=== PATIENT | male | born 1960 | race Caucasian/White ===

== ENCOUNTER 2016-10-20 03:50 | Inpatient (IN) | payer SELFPAY ==
[~2016-10-20] VITALS: Ht 175.3 cm; Wt 72.1 kg
[2016-10-20] MEDS ORDERED: dexameTHASONE 20 MG/5 ML VIAL (J1100) As Ordered ONE (04:13)
[2016-10-20 04:24] LABS: ABG BASE EXCESS -0.6 (-2.0-2.0); ABG DEVICE NASAL CANN; ABG HCO3 29.8 MEQ/L (22.0-26.0); ABG STANDARD HCO3 24.1 MEQ/L (22.0-26.0); ABG TOTAL CO2 32.1 MEQ/L (22.0-29.0)
[2016-10-20 04:26] LABS: ABG pH (ARTERIAL) 7.205 UNITS (7.350-7.450)
[2016-10-20 04:28] LABS: ABG PARTIAL PRESSURE O2 405.9 mmHg (75.0-100.0)
[2016-10-20 04:29] LABS: BASO % 0.1 % (0.0-1.0); EOS % 0.3 % (0.0-3.0); LARGE UNSTAINED CELL # 0.3 K/mm3 (0.0-0.4); LARGE UNSTAINED CELL % 1.4 % (0.0-4.0); LYMPH # 1.7 K/mm3 (1.5-4.5); LYMPH % 8.7 % (24.0-44.0); MEAN CORPUSCULAR HEMOGLOBIN 30.3 pg (27.0-33.0); MEAN CORPUSCULAR HGB CONC 33.9 g/dl (32.0-36.5); MEAN CORPUSCULAR VOLUME 89.5 fl (80.0-96.0); MONO # 1.4 K/mm3 (0.0-0.8); MONO % 7.1 % (0.0-5.0); NEUTROPHILS # 15.7 K/mm3 (1.8-7.7); NEUTROPHILS % 82.4 % (36.0-66.0); PLATELET COUNT, AUTOMATED 424 k/mm3 (150-450); WHITE BLOOD COUNT 19.1 K/mm3 (4.0-10.0)
[2016-10-20] MEDS ORDERED: IPRATROPIUM 0.5MG/ALBUTEROL 2.5MG INH SOL UD 3ML (DUONEB)(J7620) As Ordered ONE (04:33)
[2016-10-20] MEDS ORDERED: ASPI81TA7 PO (04:46)
[2016-10-20 05:26] LABS: ABG BASE EXCESS 0.9 (-2.0-2.0); ABG DEVICE NASAL CANN; ABG HCO3 28.3 MEQ/L (22.0-26.0); ABG PARTIAL PRESSURE CO2 56.4 mmHg (35.0-45.0); ABG PARTIAL PRESSURE O2 124.5 mmHg (75.0-100.0); ABG STANDARD HCO3 25.3 MEQ/L (22.0-26.0); ABG pH (ARTERIAL) 7.318 UNITS (7.350-7.450)
[2016-10-20] MEDS ORDERED: ASPIRIN 81 MG CHEW TABLET As Ordered ONE (05:27)
[2016-10-20 06:35] LABS: ABG BASE EXCESS 1.5 (-2.0-2.0); ABG HCO3 28.4 MEQ/L (22.0-26.0); ABG PARTIAL PRESSURE CO2 53.9 mmHg (35.0-45.0); ABG PARTIAL PRESSURE O2 113.2 mmHg (75.0-100.0); ABG STANDARD HCO3 25.8 MEQ/L (22.0-26.0); ABG pH (ARTERIAL) 7.339 UNITS (7.350-7.450)
--- NOTE | 2016-10-20 06:50 | HPEPDOC ---
General Date of Admission Oct 20, 2016 at 06:15 Chief Complaint The patient is a 56-year-old male admitted with a reason for visit of Copd Exacerbation. History of Present Illness 56 year old male with no PMH but chronic smoking is here with SOB for 1 day duration and productive cough with yellow sputum. Patient denies any chest pain, palpitations. never been admitted for COPD exacerbation. Patient is chronic smoker about 1-2 pack a day for many years. Hasn't had any medications, no nebulizer or inhaler. does not see any doctor outside. He does get SOB and dyspnea on exertion for past few months but since today is has been getting worse and it's been occurring at rest with wheezing. No sick contact, fever or chills. No history of pneumonia. No weight loss. Home Medications Scheduled Aspirin (Aspirin) 81 Mg Tab 81 MG PO DAILY (Reported) Allergies Coded Allergies: No Known Allergies (Unverified , 10/20/16) Past Medical History Medical History none Surgical History none Family History Significant Family History: No pertinent family hx Social History * Smoker: non-smoker, current smoker Alcohol: denies Recent Travel/Sick Contacts: Denies: Recent sick contacts, Recent travel Psychosocial History: No pertinent psych hx Review of Symptoms Constitutional: Denies: Chills, Fatigue, Fever, Lethargy, Malaise, Night Sweats , Other, Weakness, Weight Loss Eyes: Denies: Conjunctivae inflammation, Eyelid inflammation, Other, Pain, Redness, Vision change ENT: Denies: Dysphagia, Ear Pain, Epistaxis, Head Aches, Other Symptoms, Post Nasal Drip, Sinus Congestion, Sore Throat Skin: Denies: Breakdown, Bruising, Dry, Itching, Jaundice, Lesions, Nail Changes, Other, Rash Pulmonary: Reports: Cough, Dyspnea Cardiovascular: Denies: Chest Pain, Edema, Lt Headedness, Orthopnea, Other Symptoms, Palpitations, Paroxysmal Noc. Dyspnea Gastrointestinal: Denies: Abdominal Pain, Constipation, Diarrhea, Hematochezia , Melena, Nausea, Other Symptoms, Vomiting Endocrine: Denies: Cold Intolerance, Heat Intolerance, Other Endocrine Sx, Polydipsia, Polyphagia, Polyuria Musculoskeletal: Denies: Arm Pain, Back Pain, Foot Pain, Hand Pain, Joint Pain , Leg Pain, Muscle Pain, Neck Pain, Other Symptoms, Shoulder Pain, Spasms Physical Examination Eye Exam: Negative: Conjunctiva & lids normal, EOMI, Other Eye Symptoms, PERRLA , Ptosis, Sclera icteric ENT Exam: Negative: Atraumatic, Ext Auditory Canal Nml, Mucous membr. moist/ pink, Nares Patent, Other ENT, Pharyngeal Edema, Pharynx Normal, Pinna Normal, Tongue Midline, Tympanic Membranes Normal Neck Exam: Negative: +2 carotid pulse wo bruit, JVD, Lymphadenopathy, Other, Supple, thyromegaly Chest Exam: Positive: Diminished, Wheezing Heart Exam: Negative: Bradycardic, Gallops, Irregular Rhythm, Murmurs, Normal S1, Normal S2, Other, Rate Normal, Regular Rhythm, Rubs, Tachycardic Telemetry: Negative: AV Block, Asystole, Atrial fibrillation, Bradycardia, No significant arrhythmia, Other Telemetry:, PACs, PVCs, Pause, SV Tach, Sinus, Tachycardia Abdomen Exam: Negative: BS Hyperactive, BS Hypoactive, Hepatospenomegaly, Hernia, Mass, Normal bowel sounds, Other, Soft, Tenderness Extremity Exam: Positive: Edema, Swelling Vital Signs BP 112/73 P 91 T: 99.6 Laboratory Data Labs 24H Laboratory Tests 2 10/20/16 03:59: B-Type Natriuretic Peptide 772H, White Blood Count 19.1H, Red Blood Count 4.74, Hemoglobin 14.4, Hematocrit 42.5, Mean Corpuscular Volume 89.5, Mean Corpuscular Hemoglobin 30.3, Mean Corpuscular Hemoglobin Concent 33.9, Red Cell Distribution Width 12.0, Platelet Count 424, Neutrophils (%) (Auto) 82.4H, Lymphocytes (%) (Auto) 8.7L, Monocytes (%) (Auto) 7.1H, Eosinophils (%) (Auto) 0.3, Basophils (%) (Auto) 0.1, Neutrophils # (Auto) 15.7H, Lymphocytes # (Auto) 1.7, Monocytes # (Auto) 1.4H, Eosinophils # (Auto) 0.0, Basophils # (Auto) 0.0, Creatine Kinase MB 36.3H, Creatine Kinase MB Relative Index 4.64H, Lactic Acid Level 3.6*H, Large Unclassified Cells # 0.3, Large Unclassified Cells % 1.4, Total Creatine Kinase 781H, Troponin I 0.13H 10/20/16 04:10: Arterial Blood pH 7.205*L, Arterial Blood Partial Pressure CO2 77.0*H, Arterial Blood Partial Pressure O2 405.9H, Arterial Blood Total CO2 32.1H, Arterial Blood HCO3 29.8H, Arterial Blood Base Excess -0.6, Arterial Blood Oxygen Saturation 99.8H, Blood Gas Bicarbonate Standard 24.1, Oxygen Delivery Device NASAL HEMALATHA 10/20/16 05:02: Arterial Blood pH 7.318L, Arterial Blood Partial Pressure CO2 56.4H, Arterial Blood Partial Pressure O2 124.5H, Arterial Blood Total CO2 30.0H, Arterial Blood HCO3 28.3H, Arterial Blood Base Excess 0.9, Arterial Blood Oxygen Saturation 98.5, Blood Gas Bicarbonate Standard 25.3, Oxygen Delivery Device NASAL HEMALATHA 10/20/16 06:30: Arterial Blood pH 7.339L, Arterial Blood Partial Pressure CO2 53.9H, Arterial Blood Partial Pressure O2 113.2H, Arterial Blood Total CO2 30.0H, Arterial Blood HCO3 28.4H, Arterial Blood Base Excess 1.5, Arterial Blood Oxygen Saturation 98.4, Blood Gas Bicarbonate Standard 25.8 10/20/16 06:31: CBC/BMP Laboratory Tests 10/20/16 03:59 Red Blood Count 4.74, Mean Corpuscular Volume 89.5, Mean Corpuscular Hemoglobin 30.3, Mean Corpuscular Hemoglobin Concent 33.9, Red Cell Distribution Width 12.0 , Neutrophils (%) (Auto) 82.4 H, Lymphocytes (%) (Auto) 8.7 L, Monocytes (%) ( Auto) 7.1 H, Eosinophils (%) (Auto) 0.3, Basophils (%) (Auto) 0.1, Neutrophils # (Auto) 15.7 H, Lymphocytes # (Auto) 1.7, Monocytes # (Auto) 1.4 H, Eosinophils # (Auto) 0.0, Basophils # (Auto) 0.0 Microbiology Microbiology 10/20/16 Blood Culture, Received Pending Plan / VTE VTE Prophylaxis Ordered?: Yes Plan Plan 56 year old male with no PMH but chronic smoking is here with SOB for 1 day duration and productive cough with yellow sputum. COPD exacerbation: - on BIPAP at this time, will start him duoneb, spiriva, IV steroids and inhaled steroids. - obtain ABG in few hours. - also given elevated WBC will start him on azithromycin, so signs of PNA on CXR will obtain 2 view just to confirm. - also will check D-Dimer, there is low suspicion for PE but given acute setting of dyspnea just ruling out PE. - currently on BIPAP so NPO. elevated troponins: - has trace pitting edema and not in acute heart failure given no rales and PVC on CXR or JVD. - will trend CE and ECG and obtain ECHO as well. - also ruling out PE by d-dimer. echo will also check for RV strain. DVT: lovenox for ppx. HARSHA CADE MD Oct 20, 2016 06:50
[2016-10-20 07:10] LABS: ALBUMIN 2.9 GM/DL (3.2-5.2); ALBUMIN/GLOBULIN RATIO 0.69 (1.00-1.93); ALKALINE PHOSPHATASE 79 U/L (45-117); ALT/SGPT 22 U/L (12-78); AST/SGOT 43 U/L (15-37); BILIRUBIN,TOTAL 0.5 MG/DL (0.2-1.0); BLOOD UREA NITROGEN 7 MG/DL (7-18); CALCIUM LEVEL 8.4 MG/DL (8.5-10.1); CARBON DIOXIDE LEVEL 31 MEQ/L (21-32); CHLORIDE LEVEL 72 MEQ/L (98-107); CREATININE FOR GFR 0.56 MG/DL (0.70-1.30); GLOMERULAR FILTRATION RATE > 60.0 (>56); GLUCOSE, FASTING 124 MG/DL (70-105); POTASSIUM SERUM 5.1 MEQ/L (3.5-5.1); TOTAL PROTEIN 7.1 GM/DL (6.4-8.2)
[2016-10-20] MEDS ORDERED: IPRATROPIUM 0.5MG/ALBUTEROL 2.5MG INH SOL UD 3ML (DUONEB)(J7620) NEB PRN (07:15)
[2016-10-20 07:30] LABS: ANION GAP 8 MEQ/L (8-16)
[2016-10-20 07:31] LABS: SODIUM LEVEL 111 MEQ/L (136-145)
--- NOTE | 2016-10-20 07:45 | EDDOCDS ---
Physician Documentation [facility] Name: Norberto Perdomo Age: 56 yrs Sex: Male : 1960 Arrival Date: 10/20/2016 Time: 03:50 Bed 2 Private MD: Disposition: 10/20 05:36 Critical Care:. cs11 Disposition: 10/20/16 05:07 Hospitalization ordered by Danie Dumas for Inpatient Admission. Preliminary diagnosis is Respiratory failure, unspecified with hypercapnia. - Bed requested for M ICU. - Status is Inpatient Admission. dy - Condition is Stable. - Problem is new. - Symptoms have improved. Historical: - Allergies: No known drug Allergies; - Home Meds: 1. none - PMHx: none; - PSHx: none; - Social history: Smoking status: Patient uses tobacco products, heavy tobacco smoker. No barriers to communication noted, The patient speaks fluent Slovenian, Speaks appropriately for age. - Family history: Not pertinent. - : The pt / caregiver states he / she is not on anticoagulants. Home medication list is obtained from the patient. - Exposure Risk Screening:: None identified. Vital Signs: 03:55 BP 112 / 73 (auto/); kas2 03:56 Pulse 91 MON; Pulse Ox 97% ; kas2 03:57 BP 112 / 73; Pulse 89; Resp 36; Pulse Ox 74% on R/A; Pain 0/10; nn1 04:00 Pulse Ox 99% on 15% Non-rebreather mask; nn1 04:00 BP 117 / 90 (auto/); kas2 04:00 Pulse 90 MON; Pulse Ox 98% ; kas2 04:30 BP 166 / 98 (auto/); kas2 04:30 Pulse 82 MON; Pulse Ox 100% ; kas2 04:45 BP 149 / 81 (auto/); kas2 04:45 Pulse 82 MON; Pulse Ox 99% ; kas2 05:00 BP 133 / 78 (auto/); kas2 05:00 Pulse 81 MON; Pulse Ox 98% ; kas2 05:15 BP 124 / 70 (auto/); kas2 05:15 Pulse 77 MON; Pulse Ox 97% ; kas2 05:30 BP 124 / 75 (auto/); kas2 05:30 Pulse 76 MON; Pulse Ox 95% ; kas2 05:45 BP 130 / 76 (auto/); kas2 05:45 Pulse 77 MON; Pulse Ox 97% ; kas2 06:00 BP 126 / 72 (auto/); kas2 06:00 Pulse 77 MON; Pulse Ox 96% ; kas2 06:15 BP 133 / 86 (auto/); kas2 06:15 Pulse 78 MON; Pulse Ox 98% ; kas2 06:30 BP 138 / 69 (auto/); kas2 06:30 Pulse 76 MON; Pulse Ox 98% ; kas2 06:33 Resp 20; Temp 98.0(O); Pain 0/10; kas2 07:35 BP 127 / 86; Pulse 76; Resp 20; Temp 97.6; Pulse Ox 96% on 40% BiPAP; Pain 0/10; bcj MDM: 04:07 Call Respiratory ordered. cs11 04:08 BIPAP INPATIENT+RESP-VENT ordered. EDMS 04:09 Call Respiratory complete. kas2 04:10 -Blood Culture (Adults Only), peripheral from different site, or from device/port/PICC cs11 etc. if present ordered. 04:10 Call Respiratory ordered. cs11 04:10 Albuterol-Ipratropium 3 ml Inhalation once ordered. cs11 04:10 Dexamethasone 10 mg IV at bolus once ordered. cs11 04:10 Chest, 1 View Ordered. EDMS 04:10 BED REQUEST+ADM ordered. EDMS 04:11 Call Respiratory complete. kas2 04:11 -Blood Culture (Adults Only), peripheral from different site, or from device/port/PICC kas2 etc. if present complete. 04:11 ECG WITH READING ER PHYS+CARDIAG ordered. EDMS 04:11 CBC with Diff Ordered. EDMS 04:11 Lactic Acid (Sandra tube on ice) Ordered. EDMS 04:11 Cardiac Marker Panel Ordered. EDMS 04:11 BNP Ordered. EDMS 04:11 -Arterial Blood Gas Ordered. EDMS 04:11 -Blood Culture Ordered. EDMS 04:31 CBC with Diff Reviewed. cs11 04:31 -Arterial Blood Gas Reviewed. cs11 04:53 Lactic Acid (Sandra tube on ice) Reviewed. cs11 04:53 Cardiac Marker Panel Reviewed. cs11 05:01 Financial registration complete. hs2 05:01 [facility] Payment Agreement was scanned into [employer] and attached to record. hs2 05:21 BNP Reviewed. cs11 05:24 Aspirin 324 mg PO once ordered. cs11 05:25 -Arterial Blood Gas Ordered. EDMS 06:15 COMPLETE COMPHRENSIVE METABOLI Ordered. EDMS 06:15 D-DIMER QUANT Ordered. EDMS 06:16 Chest, 2 view PA, Lat Ordered. EDMS 06:18 ARTERIAL BLOOD GAS Ordered. EDMS 06:18 SPUTUM CULTURE AND GRAM STAIN Ordered. EDMS 06:19 Admission / Observation Status ordered. EDMS 06:19 NPO DIET ordered. EDMS 06:52 ECHOCARD,DOPPLER/COLOR FLOW ordered. EDMS 06:58 URINALYSIS Ordered. EDMS 07:05 CARDIAC MARKER PANEL Ordered. EDMS 07:05 CARDIAC MARKER PANEL Ordered. EDMS 07:05 LACTIC ACID LEVEL, LACTATE Ordered. EDMS 07:08 RESPIRATORY PANEL Ordered. EDMS Administered Medications: 04:20 Drug: Albuterol-Ipratropium 3 ml [ipratropium-albuterol 0.5 mg-3 mg(2.5 mg base)/3 mL jc3 nebulization soln (3 mL)] Route: Inhalation; 04:25 Drug: Dexamethasone 10 mg [dexamethasone 4 mg/mL injection solution] Route: IV; Rate: kas2 bolus; Site: right hand; 05:32 Drug: Aspirin 324 mg [aspirin 81 mg chewable tablet (4 tabs)] Route: PO; kas2 Critical Care Time: 05:36 Critical care time: Bedside Care: 120 minutes. Total time: 120 minutes cs11 Signatures: Dispatcher [employer] EDMS Mary Fitzpatrick RN RN daq Youngs, David RN Ag Huang DO DO cs11 Navid Barker RN RN nn1 Eneida Thomas, Chance Reg hs2 Jessica Jones RN RN kas2 Cj Garcia jc3 The chart was reviewed and I authenticate all verbal orders and agree with the evaluation and treatment provided.Corrections: (The following items were deleted from the chart) 06:37 05:23 BASIC METABOLIC PROFILE+LAB ordered. EDMS EDMS 07:03 06:52 CARDIAC MARKER PANEL ordered. EDMS EDMS 07:03 06:52 CARDIAC MARKER PANEL ordered. EDMS EDMS 07:03 06:52 CARDIAC MARKER PANEL ordered. EDMS EDMS 07:18 07:05 C REACTIVE PROTEIN QUANTITATIV ordered. EDMS EDMS 07:18 07:08 THYROID PROFILE ordered. EDMS EDMS Attachments: 05:01 [facility] Payment Agreement hs2 MTDD
--- NOTE | 2016-10-20 07:45 | EDDOCDS ---
Nurse's Notes [facility] Name: Norberto Perdomo Age: 56 yrs Sex: Male : 1960 Arrival Date: 10/20/2016 Time: 03:50 Bed 2 Private MD: Diagnosis: Respiratory failure, unspecified with hypercapnia Presentation: 10/20 03:56 Presenting complaint: Patient states: SOB x 3 hours. Suicide/Homicide risk assessment- nn1 the patient denies having any suicidal and/or homicidal ideations and does not present with any other emotional, behavioral or mental health complaints. Status: Patient is not a track service worker or dependent. Transition of care: patient was not received from another setting of care. 03:56 Acuity: OPAL Level 3 nn1 03:56 Method Of Arrival: Walkin/Carried/Asstd nn1 05:11 Adult Sepsis Screening: The patient does not have new or worsening altered mentation. kas2 Patient's respiratory rate is less than 22. Systolic blood pressure is greater than 100. Patient has a qSOFA score of 0- Negative Sepsis Screen. Triage Assessment: 03:59 General: Appears distressed, Behavior is cooperative. Pain: Denies pain. The patient is nn1 triaged at the bedside. See Assessment in Nurses Notes section of ED record. Neurological: Level of Consciousness is awake, alert. Cardiovascular: Capillary refill < 3 seconds. Respiratory: Onset: The symptoms/episode began/occurred 2 HOURS AGO, Airway is patent Respiratory effort is labored, gasping, with retractions. Derm: Skin is diaphoretic. 05:10 Pt Declines HIV testing. kas2 Historical: - Allergies: No known drug Allergies; - Home Meds: 1. none - PMHx: none; - PSHx: none; - Social history: Smoking status: Patient uses tobacco products, heavy tobacco smoker. No barriers to communication noted, The patient speaks fluent Burkinan, Speaks appropriately for age. - Family history: Not pertinent. - : The pt / caregiver states he / she is not on anticoagulants. Home medication list is obtained from the patient. - Exposure Risk Screening:: None identified. Screenin:10 Screening information is obtained from the patient. Fall risk: No risks identified. kas2 Assistance ADL's: requires no assistance with activities of daily living. Abuse/DV Screen: The patient / caregiver reports he/she is: not in a situation that causes fear, pain or injury. Nutritional screening: No deficits noted. Advance Directives: Currently, there is no health care proxy. There is no active DNR order. There is no living will. There is no Power of Adjunct Latin Professor. home support is adequate. Assessment: 03:50 General: RT in the room applying BIPAP to patient at this time.. kas2 04:06 General: Appears distressed, unkempt, Behavior is appropriate for age, cooperative. kas2 Pain: Denies pain. Neurological: Level of Consciousness is awake, alert, Oriented to person, place, time. Cardiovascular: Capillary refill < 3 seconds Heart tones present Rhythm is sinus tachycardia No ectopy. Respiratory: Airway is compromised Respiratory effort is labored, with nasal flaring, Respiratory pattern is tachypnea Breath sounds are diminished Breath sounds with wheezes inspiratory expiratory bilaterally. Derm: Skin is intact, Skin is diaphoretic, Skin is pale, Skin temperature is warm. 05:05 General: Patient sitting up in bed with BIPAP on. Patient is much more comfortable and kas2 SpO2 100%. No apparent distress noted. Appears comfortable. VSS. Call mtz within reach. Will continue to monitor.. 06:32 General: Appears in no apparent distress, comfortable, well nourished, well groomed, kas2 Behavior is appropriate for age, cooperative. Pain: Denies pain. Neurological: Level of Consciousness is awake, alert, Oriented to person, place, time. Cardiovascular: Capillary refill < 3 seconds Heart tones present Rhythm is sinus rhythm No ectopy. Respiratory: Airway is patent Respiratory effort is even, unlabored, Respiratory pattern is regular, symmetrical, Breath sounds are diminished bilaterally. Derm: Skin is intact, Skin is dry, Skin is pink, warm & dry. Skin temperature is warm. 07:35 General: Appears in no apparent distress, comfortable, Behavior is cooperative. Pain: bcj Denies pain. Neurological: Level of Consciousness is awake, alert, Oriented to person, place, time. Cardiovascular: Rhythm is sinus rhythm. Respiratory: Airway is patent Respiratory effort is even, unlabored, Respiratory pattern is regular, Breath sounds with rhonchi bilaterally. Breath sounds are diminished bilaterally. Derm: Skin is pink, warm & dry. Vital Signs: 03:55 BP 112 / 73 (auto/); kas2 03:56 Pulse 91 MON; Pulse Ox 97% ; kas2 03:57 BP 112 / 73; Pulse 89; Resp 36; Pulse Ox 74% on R/A; Pain 0/10; nn1 04:00 Pulse Ox 99% on 15% Non-rebreather mask; nn1 04:00 BP 117 / 90 (auto/); kas2 04:00 Pulse 90 MON; Pulse Ox 98% ; kas2 04:30 BP 166 / 98 (auto/); kas2 04:30 Pulse 82 MON; Pulse Ox 100% ; kas2 04:45 BP 149 / 81 (auto/); kas2 04:45 Pulse 82 MON; Pulse Ox 99% ; kas2 05:00 BP 133 / 78 (auto/); kas2 05:00 Pulse 81 MON; Pulse Ox 98% ; kas2 05:15 BP 124 / 70 (auto/); kas2 05:15 Pulse 77 MON; Pulse Ox 97% ; kas2 05:30 BP 124 / 75 (auto/); kas2 05:30 Pulse 76 MON; Pulse Ox 95% ; kas2 05:45 BP 130 / 76 (auto/); kas2 05:45 Pulse 77 MON; Pulse Ox 97% ; kas2 06:00 BP 126 / 72 (auto/); kas2 06:00 Pulse 77 MON; Pulse Ox 96% ; kas2 06:15 BP 133 / 86 (auto/); kas2 06:15 Pulse 78 MON; Pulse Ox 98% ; kas2 06:30 BP 138 / 69 (auto/); kas2 06:30 Pulse 76 MON; Pulse Ox 98% ; kas2 06:33 Resp 20; Temp 98.0(O); Pain 0/10; kas2 07:35 BP 127 / 86; Pulse 76; Resp 20; Temp 97.6; Pulse Ox 96% on 40% BiPAP; Pain 0/10; [facility] Vitals: 07:38 Log In Time N/A - ambulance arrival. [facility] ED Course: 03:55 Patient visited by Niharika Merritt. gjb 03:55 Jessica Jones,RN is Primary Nurse. nn1 03:55 Patient moved to Waiting gjb 03:55 Patient moved to 2 nn1 03:56 Ag Godinez DO is Attending Physician. cs11 03:56 Patient visited by Ag Godinez DO. cs11 03:57 Triage Initiated nn1 04:05 Inserted saline lock: 18 gauge in right antecubital area and blood collected. The kas2 patient tolerated the procedure well. 04:06 Inserted saline lock: 20 gauge in right forearm The patient tolerated the procedure kas2 well. 04:09 Patient visited by Jessica Jones RN. kas2 04:12 CBC with Diff Sent. kas2 04:12 Cardiac Marker Panel Sent. kas2 04:12 Lactic Acid (Sandra tube on ice) Sent. kas2 04:12 BNP Sent. kas2 04:18 Patient visited by Rose Field Unit Clerk. jlm 04:18 EKG done. (by ED staff). Reviewed by Ag Godinez DO. jlm 04:19 -Arterial Blood Gas Sent. jc3 04:26 Patient visited by Jessica Jones RN. kas2 04:30 Notified attending ED physician of Critical lab value. sls1 05:01 [facility] Payment Agreement was scanned into [employer] and attached to record. hs2 05:06 Danie Dumas MD is Hospitalizing Provider. cs11 05:10 No procedures done that require assistance. kas2 05:11 Patient visited by Jessica Jones RN. kas2 06:31 ARTERIAL BLOOD GAS Sent. jc3 06:33 Patient visited by Jessica Jones RN. kas2 07:29 Patient visited by Kolby Desouza RN. bcj 07:35 Primary Nurse role handed off by Jessica Jones RN deg 07:35 No apparent distress. Resting quietly. Awaiting bed assignment. bcj 07:35 The patient / caregiver is instructed regarding the plan of care and ED course. Cardiac bcj monitor on. Pulse ox on. NIBP on. 07:35 IV is intact. bcj Administered Medications: 04:20 Drug: Albuterol-Ipratropium 3 ml [ipratropium-albuterol 0.5 mg-3 mg(2.5 mg base)/3 mL jc3 nebulization soln (3 mL)] Route: Inhalation; 04:25 Drug: Dexamethasone 10 mg [dexamethasone 4 mg/mL injection solution] Route: IV; Rate: kas2 bolus; Site: right hand; 05:32 Drug: Aspirin 324 mg [aspirin 81 mg chewable tablet (4 tabs)] Route: PO; kas2 RT: 04:19 ABG's drawn from right brachial artery pressure held for 5 minutes no bleeding noted jc3 pressure bandage applied specimen sent pt. tolerated well. 04:19 BIPAP: Inspiratory Pressure: 14, Expiratory Pressure: 6, Backup Rate: 8, FiO2: 50%, jc3 Full face fask. Initial Med Neb Given as ordered. Respiratory: Breath sounds are diminished bilaterally. 04:36 BIPAP: FiO2: 40%. jc3 05:05 ABG's drawn from right radial artery pressure held for 5 minutes no bleeding noted jc3 pressure bandage applied specimen sent pt. tolerated well. 05:15 Respiratory: Airway is patent Respiratory effort is labored, Use of accessory muscles jc3 noted. Respiratory pattern is Breath sounds are diminished bilaterally. 06:31 ABG's drawn from right brachial artery pressure held for 5 minutes no bleeding noted jc3 pressure bandage applied specimen sent pt. tolerated well. Order Results: Lab Order: CBC with Diff; SPEC'M 10/20/16 03:59 Test: WHITE BLOOD COUNT; Value: 19.1; Range: 4.0-10.0; Abnormal: Above high normal; Units: K/mm3; Status: F Test: RED BLOOD COUNT; Value: 4.74; Range: 4.30-6.10; Units: M/mm3; Status: F Test: HEMOGLOBIN; Value: 14.4; Range: 14.0-18.0; Units: g/dl; Status: F Test: HEMATOCRIT; Value: 42.5; Range: 42.0-52.0; Units: %; Status: F Test: MEAN CORPUSCULAR VOLUME; Value: 89.5; Range: 80.0-96.0; Units: fl; Status: F Test: MEAN CORPUSCULAR HEMOGLOBIN; Value: 30.3; Range: 27.0-33.0; Units: pg; Status: F Test: MEAN CORPUSCULAR HGB CONC; Value: 33.9; Range: 32.0-36.5; Units: g/dl; Status: F Test: RED CELL DISTRIBUTION WIDTH; Value: 12.0; Range: 11.5-14.5; Units: %; Status: F Test: PLATELET COUNT, AUTOMATED; Value: 424; Range: 150-450; Units: k/mm3; Status: F Test: NEUTROPHILS %; Value: 82.4; Range: 36.0-66.0; Abnormal: Above high normal; Units: %; Status: F Test: LYMPH %; Value: 8.7; Range: 24.0-44.0; Abnormal: Below low normal; Units: %; Status: F Test: MONO %; Value: 7.1; Range: 0.0-5.0; Abnormal: Above high normal; Units: %; Status: F Test: EOS %; Value: 0.3; Range: 0.0-3.0; Units: %; Status: F Test: BASO %; Value: 0.1; Range: 0.0-1.0; Units: %; Status: F Test: LARGE UNSTAINED CELL %; Value: 1.4; Range: 0.0-4.0; Units: %; Status: F Test: NEUTROPHILS #; Value: 15.7; Range: 1.8-7.7; Abnormal: Above high normal; Units: K/mm3; Status: F Test: LYMPH #; Value: 1.7; Range: 1.5-4.5; Units: K/mm3; Status: F Test: MONO #; Value: 1.4; Range: 0.0-0.8; Abnormal: Above high normal; Units: K/mm3; Status: F Test: EOS #; Value: 0.0; Range: 0.0-0.50; Units: K/mm3; Status: F Test: BASO #; Value: 0.0; Range: 0.0-0.2; Units: K/mm3; Status: F Test: LARGE UNSTAINED CELL #; Value: 0.3; Range: 0.0-0.4; Units: K/mm3; Status: F Lab Order: Lactic Acid (Sandra tube on ice); SPEC'M 10/20/16 03:59 Test: LACTIC ACID LEVEL, LACTATE; Value: 3.6; Range: 0.4-2.0; Abnormal: Above upper panic limits; Units: MMOL/L; Status: F Lab Order: Cardiac Marker Panel; SPEC'M 10/20/16 03:59 Test: CPK CREATINE PHOSPHOKINASE; Value: 781; Range: 39-308; Abnormal: Above high normal; Units: U/L; Status: F Test: CK-MB VALUE MASS; Value: 36.3; Range: 0.0-3.6; Abnormal: Above high normal; Units: NG/ML; Status: F Test: MB/CK RELATIVE INDEX; Value: 4.64; Range: < OR =4; Abnormal: Above high normal; Status: F Test: TROPONIN I; Value: 0.13; Range: < 0.10; Abnormal: Above high normal; Units: NG/ML; Status: F Test Note: ; DIAGNOSIS CRITERIA MMB ng/ml Relative Index (RI) NON-AMI < or = 5 N/A SANDRA ZONE > 5 < or = 4 AMI > 5 > 4 Lab Order: BNP; [facility] 10/20/16 03:59 Test: BRAIN NATRIURETIC PEPTIDE; Value: 772; Range: <100; Abnormal: Above high normal; Units: PG/ML; Status: F Lab Order: -Arterial Blood Gas; [facility] 10/20/16 04:10 Test: ABG pH (ARTERIAL); Value: 7.205; Range: 7.350-7.450; Abnormal: Critical Low; Units: UNITS; Status: F Test: ABG PARTIAL PRESSURE CO2; Value: 77.0; Range: 35.0-45.0; Abnormal: Above upper panic limits; Units: mmHg; Status: F Test: ABG PARTIAL PRESSURE O2; Value: 405.9; Range: 75.0-100.0; Abnormal: Above high normal; Units: mmHg; Status: F Test: ABG TOTAL CO2; Value: 32.1; Range: 22.0-29.0; Abnormal: Above high normal; Units: MEQ/L; Status: F Test: ABG HCO3; Value: 29.8; Range: 22.0-26.0; Abnormal: Above high normal; Units: MEQ/L; Status: F Test: ABG BASE EXCESS; Value: -0.6; Range: -2.0-2.0; Status: F Test: ABG STANDARD HCO3; Value: 24.1; Range: 22.0-26.0; Units: MEQ/L; Status: F Test: ABG O2 SATURATION; Value: 99.8; Range: 95.0-99.0; Abnormal: Above high normal; Units: %; Status: F Test: ABG DEVICE; Value: NASAL HEMALATHA; Status: F Lab Order: -Arterial Blood Gas; [facility] 10/20/16 05:02 Test: ABG pH (ARTERIAL); Value: 7.318; Range: 7.350-7.450; Abnormal: Below low normal; Units: UNITS; Status: F Test: ABG PARTIAL PRESSURE CO2; Value: 56.4; Range: 35.0-45.0; Abnormal: Above high normal; Units: mmHg; Status: F Test: ABG PARTIAL PRESSURE O2; Value: 124.5; Range: 75.0-100.0; Abnormal: Above high normal; Units: mmHg; Status: F Test: ABG TOTAL CO2; Value: 30.0; Range: 22.0-29.0; Abnormal: Above high normal; Units: MEQ/L; Status: F Test: ABG HCO3; Value: 28.3; Range: 22.0-26.0; Abnormal: Above high normal; Units: MEQ/L; Status: F Test: ABG BASE EXCESS; Value: 0.9; Range: -2.0-2.0; Status: F Test: ABG STANDARD HCO3; Value: 25.3; Range: 22.0-26.0; Units: MEQ/L; Status: F Test: ABG O2 SATURATION; Value: 98.5; Range: 95.0-99.0; Units: %; Status: F Test: ABG DEVICE; Value: NASAL HEMALATHA; Status: F Lab Order: COMPLETE COMPHRENSIVE METABOLI; SPEC'M 10/20/16 06:31 Test: GLUCOSE, FASTING; Value: 124; Range: 70-105; Abnormal: Above high normal; Units: MG/DL; Status: F Test: BLOOD UREA NITROGEN; Value: 7; Range: 7-18; Units: MG/DL; Status: F Test: CREATININE FOR GFR; Value: 0.56; Range: 0.70-1.30; Abnormal: Below low normal; Units: MG/DL; Status: F Test: GLOMERULAR FILTRATION RATE; Value: > 60.0; Range: >56; Status: F Test: SODIUM LEVEL; Value: 111; Range: 136-145; Abnormal: Critical Low; Units: MEQ/L; Status: F Test: POTASSIUM SERUM; Value: 5.1; Range: 3.5-5.1; Units: MEQ/L; Status: F Test: CHLORIDE LEVEL; Value: 72; Range: 98-107; Abnormal: Below low normal; Units: MEQ/L; Status: F Test: CARBON DIOXIDE LEVEL; Value: 31; Range: 21-32; Units: MEQ/L; Status: F Test: ANION GAP; Value: 8; Range: 8-16; Units: MEQ/L; Status: F Test: CALCIUM LEVEL; Value: 8.4; Range: 8.5-10.1; Abnormal: Below low normal; Units: MG/DL; Status: F Test: AST/SGOT; Value: 43; Range: 15-37; Abnormal: Above high normal; Units: U/L; Status: F Test: ALT/SGPT; Value: 22; Range: 12-78; Units: U/L; Status: F Test: ALKALINE PHOSPHATASE; Value: 79; Range: 45-117; Units: U/L; Status: F Test: BILIRUBIN,TOTAL; Value: 0.5; Range: 0.2-1.0; Units: MG/DL; Status: F Test: TOTAL PROTEIN; Value: 7.1; Range: 6.4-8.2; Units: GM/DL; Status: F Test: ALBUMIN; Value: 2.9; Range: 3.2-5.2; Abnormal: Below low normal; Units: GM/DL; Status: F Test: ALBUMIN/GLOBULIN RATIO; Value: 0.69; Range: 1.00-1.93; Abnormal: Below low normal; Status: F Test Note: ; Units are mL/min/1.73 m2 Chronic Kidney Disease Staging per NKF: Stage I & II GFR >=60 Normal to Mildly Decreased Stage III GFR 30-59 Moderately Decreased Stage IV GFR 15-29 Severely Decreased Stage V GFR <15 Very Little GFR Left ESRD GFR <15 on GENERAL REPAIRER Lab Order: D-DIMER QUANT; SPEC'10/20/16 06:31 Test: D-DIMER QUANT; Value: < 270.0; Range: <500; Units: ng/ml; Status: F Lab Order: ARTERIAL BLOOD GAS; SPEC10/20/16 06:30 Test: ABG pH (ARTERIAL); Value: 7.339; Range: 7.350-7.450; Abnormal: Below low normal; Units: UNITS; Status: F Test: ABG PARTIAL PRESSURE CO2; Value: 53.9; Range: 35.0-45.0; Abnormal: Above high normal; Units: mmHg; Status: F Test: ABG PARTIAL PRESSURE O2; Value: 113.2; Range: 75.0-100.0; Abnormal: Above high normal; Units: mmHg; Status: F Test: ABG TOTAL CO2; Value: 30.0; Range: 22.0-29.0; Abnormal: Above high normal; Units: MEQ/L; Status: F Test: ABG HCO3; Value: 28.4; Range: 22.0-26.0; Abnormal: Above high normal; Units: MEQ/L; Status: F Test: ABG BASE EXCESS; Value: 1.5; Range: -2.0-2.0; Status: F Test: ABG STANDARD HCO3; Value: 25.8; Range: 22.0-26.0; Units: MEQ/L; Status: F Test: ABG O2 SATURATION; Value: 98.4; Range: 95.0-99.0; Units: %; Status: F Lab Order: THYROID PROFILE; SPEC'M 10/20/16 03:59 Test: T UPTAKE; Range: 33-40; Units: %; Status: I Test: THYROXINE (T4); Range: 4.5-12.0; Units: UG/DL; Status: I Test: FREE THYROXINE INDEX; Range: 1.4-3.8; Units: %; Status: I Test: THYROID STIMULATING HORMONE; Range: 0.358-3.740; Units: uIU/ML; Status: I Lab Order: C REACTIVE PROTEIN QUANTITATIV; SPEC'M 10/20/16 03:59 Test: C REACTIVE PROTEIN QUANTITATIV; Value: 4.04; Range: 0.00-0.30; Abnormal: Above high normal; Units: MG/DL; Status: F Outcome: 05:07 Decision to Hospitalize by Provider. [facility] 07:35 Discharge Assessment: patient administered narcotics - no. The following High Risk bcj Discharge criteria are identified: None. Admitted to ICU accompanied by nurse, accompanied by tech, via stretcher, with oxygen. Condition: stable. No special radiology studies were completed. Admission hand-off: Report called to Sharyn Crenshaw RN. Property :Personal belongings accompany Pt. 07:45 Patient left the ED. dy Signatures: Jane Harrell, In Room Dining Server Unit deg oKlby Desouza, RN RN bcj Rambo Lopez, RN RN dy Cj Garcia jc3 Neris Johns, RN RN sls1 Ag Godinez, DO PACK cs11 Rose Field, In Room Dining Server Unit jlm Navid Barker,RN RN nn1 Niharika Merritt Hillary, Reg Reg hs2 Jessica JonesRN RN kas2 MTDD
[2016-10-20 08:00] VITALS: BP 139/94
[2016-10-20] MEDS ORDERED: TIOTROPIUM INHALER/CAPSULE (SPIRIVA) INH SCH (08:00)
[2016-10-20] MEDS ORDERED: AZITHROMYCIN 500 MG, VIAL MATE ADAPTER 1 EACH in D5W 250 ML IV SCH (08:00)
[2016-10-20] MEDS ORDERED: IPRATROPIUM 0.5MG/ALBUTEROL 2.5MG INH SOL UD 3ML (DUONEB)(J7620) NEB SCH ×2 (08:00→12:00)
[2016-10-20] MEDS ORDERED: methylPREDNISolone INJ 40 MG/1 ML VIAL (J2920) IV SCH (08:00)
[2016-10-20] MEDS: HEPARIN SOD (PORCINE) 5000 UNITS/ML VIAL SQ SCH ×2 (08:20→14:08)
[2016-10-20 08:46] LABS: THYROXINE (T4) 10.3 UG/DL (4.5-12.0)
[2016-10-20] MEDS ORDERED: ENOXAPARIN 40 MG/0.4 ML SYRINGE (J1650) SC SCH (09:00)
[2016-10-20] MEDS ORDERED: NICOTINE 14 MG/24 HR TRANSDERMAL TD SCH (09:00)
[2016-10-20] MEDS ORDERED: ADVAIR DISKUS 500/50 INH PWD INH SCH (09:00)
--- NOTE | 2016-10-20 09:11 | REP ---
Clinical: Shortness of breath . Comparison: None . Findings: The mediastinum and cardiac silhouette are stable and within normal limits for portable technique. The lung greenwood are clear without acute consolidation, effusion, or pneumothorax. Skeletal structures are intact. Impression: Normal portable chest x-ray Signed by Herbie Lynch MD 10/20/2016 09:02 A
[2016-10-20 09:34] LABS: AMPHETAMINES URINE REFLEX NEGATIVE (NEGATIVE); BARBITURATES URINE REFLEX NEGATIVE (NEGATIVE); BENZODIAZEPINES URINE REFLEX NEGATIVE (NEGATIVE); COCAINE METABOLITE URINE REFLE NEGATIVE (NEGATIVE); CONTROL LINE INT CTR LINE PRESENT; METHADONE URINE REFLEX NEGATIVE (NEGATIVE); OPIATES URINE REFLEX NEGATIVE (NEGATIVE); TRICYCLIC ANTIDEPRESS UR REFL NEGATIVE (NEGATIVE)
[2016-10-20] MEDS ORDERED: GASTROGRAFIN SOLUTION 30ML (Q9963) PO ONE ×2 (10:00→10:30)
[2016-10-20] MEDS ORDERED: GASTROGRAFIN SOLUTION 30ML (Q9963) As Ordered ONE (10:03)
[2016-10-20 10:05] LABS: ANION GAP 10 MEQ/L (8-16); BLOOD UREA NITROGEN 8 MG/DL (7-18); CALCIUM LEVEL 8.4 MG/DL (8.5-10.1); CARBON DIOXIDE LEVEL 29 MEQ/L (21-32); CHLORIDE LEVEL 72 MEQ/L (98-107); CREATININE FOR GFR 0.52 MG/DL (0.70-1.30); GLOMERULAR FILTRATION RATE > 60.0 (>56); GLUCOSE, FASTING 133 MG/DL (70-105)
[2016-10-20 10:14] LABS: SODIUM LEVEL 111 MEQ/L (136-145)
[2016-10-20 10:15] LABS: POTASSIUM SERUM 5.2 MEQ/L (3.5-5.1)
--- NOTE | 2016-10-20 10:39 | REP ---
Clinical: Shortness of breath. Comparison: 10/20/2016 at 04:24 a.m.. Findings: Mediastinum and cardiac silhouette are stable. Lung greenwood demonstrate chronic interstitial changes. Mild pulmonary venous congestion cannot be excluded. No focal consolidation, effusion, or pneumothorax. Skeletal structures intact. Impression: Chronic stable-appearing changes. Cannot exclude mild pulmonary venous congestion. Signed by Herbie Lynch MD 10/20/2016 10:30 A
[2016-10-20] MEDS ORDERED: FUROSEMIDE 100 MG/10 ML VIAL (J1940) IV ONE (11:00)
[2016-10-20] MEDS ORDERED: FUROSEMIDE 40 MG/4 ML VIAL (J1940) As Ordered ONE (11:03)
[2016-10-20] MEDS ORDERED: FUROSEMIDE 20 MG/2 ML VIAL (J1940) As Ordered ONE (11:03)
[2016-10-20 11:09] VITALS: BP 166/97
[2016-10-20] MEDS ORDERED: NITROGLYCERIN 2% OINT 1 GM *U/D* PKT TOP STA (11:09)
[2016-10-20] MEDS ORDERED: MORPHINE 2 MG/ML 1ML SYRINGE As Ordered ONE (11:12)
[2016-10-20] MEDS ORDERED: MORPHINE 10 MG/ML 1ML VIAL IV ONE (11:15)
[2016-10-20 11:33] VITALS: O2SAT 96
[2016-10-20] MEDS ORDERED: ALBUTEROL SULFATE 2.5 MG/0.5 ML INH NEB SOLN NEB PRN (11:45)
[2016-10-20] MEDS ORDERED: ISOVUE-370 76% 100ML VIAL (Q9967) As Ordered ONE (11:45)
[2016-10-20 11:48] LABS: ABG BASE EXCESS -1.7 (-2.0-2.0); ABG HCO3 24.3 MEQ/L (22.0-26.0); ABG TOTAL CO2 25.7 MEQ/L (22.0-29.0); ABG pH (ARTERIAL) 7.341 UNITS (7.350-7.450)
[2016-10-20 12:00] VITALS: BP 137/87
[2016-10-20 12:29] LABS: ALBUMIN 3.2 GM/DL (3.2-5.2); ALBUMIN/GLOBULIN RATIO 0.71 (1.00-1.93); BILIRUBIN,DIRECT 0.2 MG/DL (0.0-0.2); BILIRUBIN,TOTAL 0.6 MG/DL (0.2-1.0); PHOSPHORUS LEVEL 2.7 MG/DL (2.5-4.9); TOTAL PROTEIN 7.7 GM/DL (6.4-8.2)
--- NOTE | 2016-10-20 12:35 | REP ---
Clinical: Abdominal pain and distension. Findings: Liver, spleen, pancreas, gallbladder, bilateral adrenal glands and kidneys are relatively normal. Small subcentimeter scattered hepatic and renal cysts are identified and appear benign. Mild bilateral hydronephrosis and hydroureter is appreciated with distended bladder suggesting bladder outlet obstruction by enlarged prostate gland. The enteric system is without obstruction or acute inflammatory process. Small left inguinal hernia contains unobstructed sigmoid colon. No pelvic fluid or ascites. No free air. No obvious adenopathy. Atherosclerotic changes of the aorta and branch vessels noted without aneurysm. Evidence for prior ventral hernia repair with small residual fat containing periumbilical hernia measuring approximately 1.5 cm. Musculoskeletal structures with degenerative changes at the lumbosacral spine noted. Impression: 1. Mild hydroureteronephrosis and distended bladder may be secondary to outlet obstruction by prostate gland and correlation is recommended. 2. No evidence for bowel obstruction. Small left inguinal hernia contains nonobstructed sigmoid colon. A few scattered diverticula noted without acute diverticulitis. 3. Atherosclerotic changes of the aorta and branch vessels along with degenerative changes to the lumbosacral spine. 4. No acute intra-abdominal or pelvic pathology otherwise appreciated. Signed by Herbie Lynch MD 10/20/2016 12:26 P
--- NOTE | 2016-10-20 12:53 | REP ---
Clinical: Shortness of breath. Findings: Bibasilar emphysematous changes are suggested. No consolidation, nodule or mass lesion. No pleural effusion or pneumothorax. Tracheobronchial tree is patent. Mediastinum demonstrates normal heart/pericardium and major vascular structures including normal thoracic aorta without aneurysm or dissection. No pericardial effusion. No adenopathy. Surrounding musculoskeletal structures are intact. Impression: Mild bibasilar emphysematous changes. Signed by Herbie Lynch MD 10/20/2016 12:45 P
--- NOTE | 2016-10-20 13:42 | IPN ---
DATE OF SERVICE: 10/20/2016 The patient seen and examined in the intensive care unit (ICU) with dyspnea, tachypneic, but able to speak in full sentences. Denies any chest pain, pressure, or discomfort. Reported 3 days of worsening breathing. Denies any fevers or chills. Denies any abdominal pain. Denies any nausea or vomiting. Reported smoking 1/2 pack per day to, as per the patient, one pack can last him 8 days to a week. The patient is a very poor historian, is inconsistent with his history. Denies alcohol drinking. Temperature 96.7, pulse 85, respiration 28, blood pressure 137/87, pulse oximetry 93% on 30% FiO2 on bilateral positive airway pressure (BiPAP) 09/24, backup rate of 8. Arterial blood gas (ABG) 7.34/46/81/24.3. WBC 19.1, hemoglobin and hematocrit 14.4/43.5, platelets 424. Chemistry: Sodium 111, potassium 5.2, chloride 72, bicarbonate 29, BUN 8, creatinine 0.52, troponin 0.14, total CK 1209. PHYSICAL EXAMINATION: GENERAL: The patient alert and oriented times three. Mild dyspnea. HEENT: Normocephalic. Jugular venous distention (JVD). Moist mucous membranes. CARDIAC: Regular rate and rhythm. Normal S1, S2. PULMONARY: Mild wheeze. Minimal crackles. Poor air entry. ABDOMEN: Mild distention. Positive bowel sounds. Nontender. Soft. EXTREMITIES: Trace edema bilateral lower extremities. ASSESSMENT AND PLAN: This is a 56-year-old male patient, has not seen a doctor in 8 years, chronic smoker, presented with 3 days of progressive worsening shortness of breath productive of yellow phlegm. Admitted with hypercarbic respiratory failure. Also found to be hyponatremic. PROBLEMS: 1. Hypercarbia respiratory failure. Possible secondary to underlying chronic obstructive pulmonary disease (COPD), emphysema, versus acute congestive heart failure (CHF) exacerbation. The patient on BiPAP 12/6, 30% FiO2, with improvement in hypercarbia. Continue BiPAP. Arterial blood gas (ABG) is appreciated. 2. Acute chronic obstructive pulmonary disease (COPD) exacerbation. Pulmonary, Dr. Sotomayor, has been consulted. Solu-Medrol. Nebulizer treatment. Spiriva. Advair. ABG is appreciated. Continue BiPAP management. 3. Hyponatremia. Urine study sent. Possible etiology includes syndrome of inappropriate secretion of antidiuretic hormone (SIADH) versus congestive heart failure (CHF). Echocardiogram has been sent. Brain natriuretic peptide (BNP) appreciated. Nephrology, Dr. Fry, consulted. Lasix has been given for treatment of congestive heart failure (CHF). Followup basic metabolic panel every 4 hours. Fluid restriction 1500 mL. Followup cortisol, lipid panel. Continue to monitor. 4. Questionable congestive heart failure. Echocardiogram is appreciated. The patient currently undergoing diuresis. Strict intake and output (I and O) and daily weight. Followup cardiology recommendation. 5. Elevated cardiac enzymes. Electrocardiogram (EKG) is appreciated. Telemetry monitoring. Followup cardiac enzymes. Cardiology consulted. Smoking counseling provided. 6. Hypertension. Continue medication as ordered. Will address as needed. The patient currently on nitroglycerin paste and Lasix. 7. Deep venous thrombosis (DVT) prophylaxis. Heparin subcutaneously. DISPOSITION PLANNING: The patient remains critically ill. Pending clinical improvement and further workup.
--- NOTE | 2016-10-20 14:09 | ECHO ---
DATE OF PROCEDURE: 10/20/2016 REFERRING PROVIDER: Dr. Perri Ji PATIENT LOCATION: Room 3201 REASON FOR THE ECHOCARDIOGRAM: Shortness of breath, respiratory failure. 2D MEASUREMENT: IV - 1.0 cm LV - 4.7 cm LVPW - 1.1 cm LA - 4. 1 cm Aorta - 3.1 cm RV - 4.1 cm IVC - 2.0 cm DOPPLER MEASUREMENT: Peak velocity across the aortic valve 1.5 m/s Peak velocity across the LVOT 1.3 m/s Mitral E - 1.1, Mitral A - 0.7 with a ratio of 1.58 Maximum tricuspid valve velocity 3.5 m/s 2D COMMENTS: 1. Normal left ventricular size, wall thickness and normal global left ventricular systolic function. The estimated LVEF is 65 to 70%. The estimated global LVEF is 65 to 70%. 2. Mildly enlarged left atrium. The right atrium also appeared to be mildly enlarged. The right ventricle also appears to be mildly enlarged in limited views, but the free wall was not well visualized. 3. The atrial septum appeared to be normal without evidence of defect or shunt. 4. Normal aortic root. 5. No pericardial effusion seen. 6. The aortic valve, mitral valve, tricuspid valve, and pulmonic valve appeared to be normal. The proximal pulmonary artery branches were not well visualized. 7. The inferior vena cava was mildly enlarged, central venous pressure is probably mildly elevated. Doppler: Only moderate tricuspid regurgitation detected. The calculated pulmonary artery systolic pressure varies between 50 to 60 mmHg. Assessment of the left ventricular diastolic function appeared to be normal but was limited. IMPRESSION: 1. Normal global left ventricular systolic function. Left ventricle diastolic function also appeared to be normal. 2. Moderate tricuspid regurgitation with moderate to severe pulmonary artery hypertension in dilated left heart chambers. 3. Isolated mildly enlarged left atrium, no significant mitral regurgitation.
[2016-10-20 14:26] LABS: ANION GAP 12 MEQ/L (8-16); BLOOD UREA NITROGEN 9 MG/DL (7-18); CALCIUM LEVEL 8.2 MG/DL (8.5-10.1); CARBON DIOXIDE LEVEL 32 MEQ/L (21-32); CHLORIDE LEVEL 68 MEQ/L (98-107); CREATININE FOR GFR 0.53 MG/DL (0.70-1.30); GLOMERULAR FILTRATION RATE > 60.0 (>56); GLUCOSE, FASTING 121 MG/DL (70-105); POTASSIUM SERUM 4.7 MEQ/L (3.5-5.1); SODIUM LEVEL 112 MEQ/L (136-145)
[2016-10-20] MEDS ORDERED: INFLUENZA QUADRIVALENT PF VACCINE 0.5ML SYRINGE/VIAL (90686) IM SCH (14:45)
[2016-10-20] MEDS ORDERED: TIOT18INH INH (14:59)
[2016-10-20] MEDS ORDERED: LASI40TA PO (14:59)
[2016-10-20] MEDS ORDERED: PROA1AER INH (14:59)
[2016-10-20] MEDS ORDERED: ADV500INH INH (14:59)
[2016-10-20] MEDS ORDERED: AZIT500T2 PO (14:59)
[2016-10-20] MEDS ORDERED: FUROSEMIDE 40 MG/4 ML VIAL (J1940) IV SCH ×2 (17:00→18:00)
[2016-10-20] MEDS ORDERED: NITROGLYCERIN 2% OINT 1 GM *U/D* PKT TOP SCH (18:00)
--- NOTE | 2016-10-20 18:23 | DSES ---
DATE OF ADMISSION: 10/20/2016 DATE OF DISCHARGE: 10/20/2016 PATIENT LEFT AGAINST MEDICAL ADVICE. PRIMARY CARE PROVIDER: None. Patient has not seen a doctor in eight years. DIRECTOR ORGANIZATIONAL: Dr. Jackson Sotomayor CODE ENFORCEMENT SUPERVISOR: Dr. Reid Nascimento PRINTING WORKER SUPERVISOR: Dr. Wild Fry FINAL DIAGNOSES: 1. Hypercarbic respiratory failure. 2. Acute chronic obstructive pulmonary disease (COPD) exacerbation with underlying emphysema. 3. Hyponatremia. 4. Questionable right heart failure. 5. Elevated creatinine kinase (CK). 6. Hypertension. 7. Smoking. HISTORY OF PRESENT ILLNESS: This is a 56-year-old male patient with underlying medical history of chronic smoking, has not seen a physician in eight years, who presented with shortness of breath and productive cough for three days. Denies any chest pain or palpitations. Reported a history of COPD. He is a chronic smoker 1-2 packs per day for many years. Has not taken any medications. Reported dyspnea on exertion for a few months, also reported orthopnea for the past few days, reported wheezing. Denies any fevers, chills, or sick contacts. No history of pneumonia. No history of weight loss. Patient is a poor historian, but denies any alcohol drinking. HOSPITAL COURSE: The patient was admitted to the hospital, placed on BiPAP. Arterial blood gases (ABGs) were appreciated. Basic metabolic panel shows hyponatremia. Patient was placed on antibiotics, Solu-Medrol. Patient was also noted to have jugular venous distention (JVD). He was diuresed with Lasix. Nephrology has been consulted. Urine study has been sent. Echocardiogram has also been done. Production Technologist has also been consulted. ABG shows improved hypercarbia. Basic metabolic panel shows sodium has been pretty stable hanging around 111 and 112. Cardiac enzymes serially have been done. CT scan of the chest and CT of the abdomen and pelvis has also been done for the patient. CT of the abdomen shows mild hydroureteronephrosis with distended bladder. No evidence of bowel obstruction. Small left inguinal hernia contains nonobstructing sigmoid colon, diverticula with no acute diverticulitis, atherosclerotic changes in the aorta and branches and vessel along with degenerative changes of lumbosacral spine. No acute intra-abdominal or pelvic pathology appreciated on the CT scan of the abdomen. CT scan of the chest shows bibasilar emphysematous changes. Around three p.m. today, the patient stated that he does not want the BiPAP and he wants DO NOT RESUSCITATE (DNR) and DO NOT INTUBATE (DNI). Subsequently, a medical orders for life-sustaining treatment (MOLST) form was done for the patient. Subsequently, the patient also stated that he does not want to be in the hospital, he wants to be discharged and he is aware after explaining to the patient that he is critically ill and could potentially if he leaves the hospital prematurely. He understands that he is aware of the complications, if he dies, he will at home and does not want any further treatment. At this point, the family was called to the bedside. The risks of leaving against medical advice has been explained to the patient in front of the family, which includes coma, respiratory failure, and , at which point, the patient still wanted to leave against medical advice. Patient actively has been pulling out the cardiac leads, as well as putting on his clothes and his boots, and patient was almost about to pull out his IV. It was instructed to the patient to stop because he could bleed from the IV and the nurses would be willing to take it out, if he thinks strongly about leaving against medical advice, at which point he stated that he wants to go and signed the AGAINST MEDICAL ADVICE. Subsequently the nurses removed the IV. Family still has attempted to convince the patient to stay, but the patient was resistant and patient started walking out of the intensive care unit (ICU) on his own. Patient is alert, and oriented times three, and has capacity to make his own decisions. ICU attending, Dr. Sotomayor has also spoken to the patient. Given that the patient does not require further care, patient subsequently left against medical advice. VITAL SIGNS: Temperature 96.7, pulse 85, respirations 28, blood pressure 137/87, pulse oximetry 93% on 30% FiO2, BiPAP 12/6. LABORATORY DATA: WBC 19.1, hemoglobin and hematocrit 14.4/42.5, platelets 424. AB.34, 46, 81, 24.3. Chemistry: Sodium 112, potassium 4.7, chloride 68, bicarbonate 32, BUN 9, creatinine 0.53, troponin 0.1, total CK 1720. Alcohol negative. U-tox negative. D-dimer 270. DISCHARGE MEDICATIONS: Prescriptions have been sent to the pharmacy for: - ProAir inhalation two puffs every six hours as needed - azithromycin 500 mg by mouth daily - Lasix 40 mg by mouth twice a day, 10 tablets - Advair Diskus 500/50 mcg inhalation twice a day - Spiriva inhalation daily - aspirin 81 mg by mouth daily DISCHARGE INSTRUCTIONS: Patient left AGAINST MEDICAL ADVICE. Patient is aware of the risks of leaving including respiratory failure, coma, and . Furthermore, patient was instructed once he changes his mind to return to the emergency department (ED) emergently to resume treatment and an attempt will be made to get the patient a primary care provider to followup with the patient. In the meantime, the patient remains seriously ill and requires medical attention, but unfortunately, the patient does not want further medical services.
[2016-10-20] MEDS ORDERED: methylPREDNISolone INJ 125 MG/2 ML VIAL (J2930) IV SCH (20:00)
--- NOTE | 2016-10-20 20:18 | CR ---
DATE OF CONSULTATION: 10/20/2016 REQUESTING PHYSICIAN: Dr. Perri Ji CONSULTING PHYSICIAN: Dr. Fry REASON FOR CONSULTATION: Management of hyponatremia. CHIEF COMPLAINT: The patient presented to the emergency room last night with progressive shortness of breath. HISTORY OF PRESENT ILLNESS: Mr. Norberto Perdomo is a 56-year-old male with a history of heavy smoking with no known past medical history. He presented to the emergency room with progressive shortness of breath for almost one week, along with reported cough. The patient was started on steroids and nebulizations for management of acute chronic obstructive pulmonary disease (COPD) exacerbation by the primary team. The patient was in the intensive care unit (ICU). He was placed on bilevel positive airway pressure (BIPAP) for hypercapnic respiratory failure, but laboratories done on admission also showed that his serum sodium level was 111, so nephrology service was called for further management of hyponatremia. PAST MEDICAL HISTORY: No known past medical history. The patient has not seen a physician in many years, but most likely the patient has baseline COPD. PAST SURGICAL HISTORY: No significant past surgical history. ALLERGIES: No known drug allergies. HOME MEDICATIONS: The patient was only taking aspirin at home. Current inpatient medications: The patient's inpatient medications are all reviewed by me. He was on azithromycin, DuoNeb nebulizations, Lovenox 40 mg subcutaneously daily, heparin subcutaneously, Solu-Medrol 60 mg intravenously every 8 hours. FAMILY HISTORY: No significant family history of end stage renal disease requiring hemodialysis. SOCIAL HISTORY: The patient is an active smoking, smokes almost one pack of cigarettes a day. He denies any alcohol abuse. There is no history of drug abuse. REVIEW OF SYSTEMS: CONSTITUTIONAL: The patient denied any chills, fatigue, but the patient was lethargic and tachypneic when I saw the patient. EYES: He denies any recent change in the vision or blurry vision. ENT: He denies any dysphagia or odynophagia or ear discharge. CARDIOVASCULAR: He denies any chest pain or palpitations. RESPIRATORY: The patient was in significant shortness of breath and respiratory distress when I saw the patient. GASTROINTESTINAL: He denies any abdominal pain, constipation or diarrhea. GENITOURINARY: He denies any history of dysuria or hematuria. ENDOCRINE: He denies any history of diabetes, hypothyroidism, or hyperthyroidism. MUSCULOSKELETAL: He denies any musculoskeletal pain. NEUROLOGIC: He denies any history of strokes, seizures. HEMATOLOGIC/ONCOLOGIC: He denies any history of malignancy or anemia. PSYCHIATRIC: He denies any history of anxiety or depression. All other review of systems is negative. PHYSICAL EXAMINATION: GENERAL: The patient is awake, alert, oriented times two, in moderate to severe respiratory distress and grunting and sitting in the intensive care unit (ICU) bed wearing nasal cannula. VITAL SIGNS: Temperature is 96.7 degrees Fahrenheit, blood pressure is 166/97, pulse is 82, respiratory rate of 28, saturating 93% on 30% FiO2 via BIPAP. HEAD AND NECK EXAM: Extraocular muscles intact. Pupils are equal, round and reactive to light. Mucous membranes are moist. NECK: Supple. Significantly elevated jugular venous distention (JVD). CARDIOVASCULAR: S1, S2. Regular rate. No murmur, rub or gallop. RESPIRATORY: Decreased breath sounds at the bases. However, there were no rales or rhonchi. ABDOMEN: Soft, positive bowel sounds. Nontender. Slightly distended because the patient is grunting at this time. EXTREMITIES: Very trace edema of the bilateral lower extremities. Pulses are 2+. There is no cyanosis. NEUROLOGIC: The patient is agitated at this time because of respiratory distress. Otherwise, there is no focal neurological deficit. PSYCHIATRIC: The patient is in distress and agitated. SKIN: No rashes or ulcers. LYMPH NODES: No significant cervical, axillary or inguinal lymphadenopathy. LABORATORY REVIEW: Complete blood count (CBC) showed a WBC of 19.1, hemoglobin is 14.4, platelets of 424. Urinalysis showed 2+ protein, 2+ blood. Urine osmolality was 511. Urine creatinine was 96.2. Urine random protein was 126. Random sodium was 27. Random potassium of 39.2 and random chloride was 37. ABG done this morning showed pH of 7.39, PCO2 of 53.9, PO2 of 113, bicarbonate 28.4, O2 saturation was 98.4. Basic metabolic panel (BMP) today showed sodium 111, potassium 5.2, chloride 72, bicarbonate 29, BUN is 8, creatinine 0.52, osmolality was 234, lactic acid was 1.2, calcium was 8.4, total creatinine kinase was 1720, troponin was 0.10. Urine toxicology was negative. Microbiology: Cultures are still pending. IMAGING: CAT scan of the abdomen and pelvis was done, which showed mild hydroureteronephrosis and distended bladder. No evidence of bowel obstruction. No acute intraabdominal or pelvic pathology. A CAT scan of the chest was also done and showed bibasilar emphysematous changes. ASSESSMENT: 56-year-old male who is an active smoker, no known past medical history, no medical care in the recent past, admitted at this time with chronic obstructive pulmonary disease (COPD) exacerbation. Nephrology service was called for management of hyponatremia with a sodium of 111 and hyperkalemia with a potassium of 5.2. PLAN: 1. Hyponatremia. The patient most likely hypervolemic hyponatremia. Looking at the urine electrolytes, urine and serum osmolality, it is either syndrome of inappropriate secretion of antidiuretic hormone or congestive heart failure (CHF) induced hyponatremia, however, treatment would be the same. I will give this patient Lasix 60 mg intravenous bolus and 40 mg intravenously every 8 hours, monitor the intake and output, keep on monitoring the serum BMP every four hours. Target correction would be around 8 mEq in the next 24 hours. If the serum osmolality does not respond to diuretics, then the patient would be given a dose of [id number] mg by mouth times one dose, which would help both for the fluid overload and CHF and hyponatremia. 2. Acute decompensated congestive heart failure. The patient's echocardiogram is still pending, but clinically, the patient is overloaded, he has JVD, he is grunting, he has an elevated BNP. I recommend starting the patient on BIPAP and if needed the patient can be intubated as well. Continue aggressive diuretics and start the topical nitroglycerin patch to decrease the blood pressure and maintain it around a systolic of 110. The patient can be given a dose of morphine 2 mg intravenously times one for air hunger as well. 3. COPD exacerbation. Clinically, the patient has no rales or rhonchi or wheezing. Primary team is giving steroids and nebulizations to the patient. It is okay to give the steroids to this patient at this time, but I would avoid the nebulizations because they would make his shortness of breath and congestive heart failure worse. The rest of the management is as per pulmonary service. 4. Hyperkalemia. The patient's potassium is 5.2 at this time. No urgent need to give any Kayexalate. Continue to diurese the patient and potassium would improve with diuresis. 5. Distended bladder on the CAT scan. I recommend inserting a Dee catheter, that would help improve the obstruction and help with monitoring the 24 hour urine output as well. 6. Elevated CK. I do not believe that this patient is having rhabdomyolysis at this time. Most likely CK is cardiogenic in nature. Continue the management of congestive heart failure, follow the echocardiogram and follow cardiology recommendations. Plan of care was discussed with the patient's RN at the bedside and with the hospitalist team, Dr. Perri Ji, at the bedside as well. Prognosis and current status of the patient was also discussed with the family members as well.
--- NOTE | 2016-10-20 20:28 | CR ---
DATE OF CONSULTATION: 10/20/2016 CONSULTATION REPORT FOR: Dr. Perri Ji. REASON FOR CONSULTATION: Abnormal serum troponin, congestive heart failure. HISTORY OF PRESENT ILLNESS: A 56-year-old male living alone at home with no prior known history of hypertension, hyperlipidemia, diabetes mellitus, developed shortness of breath in the last three days but came to the hospital earlier this morning because he became more short of breath. Upon arrival at the emergency room (ER), his vital signs reveal a blood pressure of 112/73 with a pulse of 89, respiratory rate 36, and his oxygen saturation was 74% on room air. He had no chest pain. He was started on a nonrebreather mask and then had an arterial blood gas (ABG) that revealed a pH of 7.205, pCO2 77, and pO2 405.9 with an oxygen saturation of 99% and documented of 29.8. He was treated in the ER with bronchodilators, Solu-Medrol, aspirin, and then admitted to the intensive care unit (ICU)/critical care unit (CCU) with diagnosis of hypercapnic respiratory failure, congestive heart failure, exacerbation of chronic obstructive pulmonary disease (COPD). A cardiology consultation was called. When I saw Mr. Norberto Perdomo, he was sitting up in bed with moderate shortness of breath at rest and using his bilevel positive airway pressure (BiPAP) machine. He denies any chest pain or palpitations. Prior to coming to the hospital, he was not taking any medications. He has a cough but denies any hemoptysis. There is no sputum. There is no fever or chills. There is no nausea, vomiting, diarrhea, melena, or hematemesis. He has no focal manifestation. PAST MEDICAL HISTORY: Positive for presumed chronic obstructive pulmonary disease (COPD). Otherwise, he denies hypertension, hyperlipidemia, diabetes mellitus, obstructive coronary artery disease, myocardial infarction, congestive heart failure, significant valvular heart disease, cerebrovascular accident (CVA), cardiomyopathy, or sudden cardiac . His laboratories done this hospitalization revealed severe hyponatremia and mildly elevated serum potassium. PAST SURGICAL HISTORY: Unremarkable. CURRENT MEDICATIONS: - Solu-Medrol 60 mg IV every 12 hours - Lasix 40 mg IV every eight hours - Nitrobid 2% one each every six hours - DuoNeb one nebulizer every four hours nebulization - Proventil nebulizer 2.5 mg every two hours as needed for shortness of breath He is also on: - Advair Diskus 500/50 one puff twice a day - nicotine patch 14 mg one patch daily - azithromycin 500 mg IV every 24 hours - Spiriva HandiHaler one inhalation daily - heparin subcutaneous 5000 units every eight hours FAMILY HISTORY: Positive for diabetes mellitus and cancer. SOCIAL HISTORY: The patient lives alone and has pets at home. He does smoke. ALLERGIES: He has no known drug allergies. ADVANCED DIRECTIVES: The patient is a full code. PHYSICAL EXAMINATION: GENERAL: The patient is alert and oriented with moderate shortness of breath at rest. VITAL SIGNS: His last vital signs reveal a blood pressure of 137/87 with a pulse of 85, respiratory rate 28, and his maximum temperature is 96.7 degrees Fahrenheit with an oxygen saturation of 93% to 96% on bilevel positive airway pressure (BiPAP) with an FiO2 of 0.3. HEAD, EYES, EARS, NOSE, AND THROAT: Atraumatic. NECK: Supple with extended jugular while sitting up. LUNGS: Did not reveal any wheezing or crackles but prolonged expiratory phase and decreased air entry. HEART: Normal S1, S2 without gallops. The point of maximal impulse (PMI) is not displaced. There is no rub. There is a systolic murmur grade 1-2 over 6 at the lower sternal border without any radiation. ABDOMEN: Soft and nontender. Bowel sounds are active. EXTREMITIES: Reveal trace bilateral ankle edema. No cyanosis or clubbing. NEUROLOGIC: Grossly is negative for focal deficit. LABORATORY DATA: BMP done today 10/20/2016 at 9:01 revealed a sodium of 111, potassium of 5.2, chloride 72, CO2 29, BUN 8, creatinine 0.52, GFR more than 60, fasting glucose 133, and calcium 8.4. Serum troponin was 0.13 and 0.14, respectively #1 and #2. Serum magnesium on admission was 2.0. Liver enzymes reveal a total bilirubin of 0.6, direct bilirubin 0.2, AST 40, ALT 25, alkaline phosphatase 84, total protein 7.7, albumin 3.2. Serum BNP on admission was 772. Serum C-reactive protein was 4.04. Serum lactic acid earlier today was 3.6. Thyroid function tests revealed a TSH of 0.61 and a T4 of 10.3, T3 uptake of 36, and free T4 of 3.7. Serum cortisol is pending. Lipid profile revealed a total cholesterol of 160 with an LDL of 106.2, HDL 37, and triglycerides of 84 with a total cholesterol/HDL ratio of 4.3. BMP drawn around 2:00 o'clock this afternoon and the result is pending. Repeat serum lactic acid is 1.2. Serum osmolality is 234. Toxicology screening seems to be negative. CBC earlier today revealed a WBC of 19.1, hemoglobin 14.4, hematocrit 42.5, and platelets 424,000. is less than 270.0. Urinalysis positive for protein, glucose, ketones, blood. Urine osmolality is 411. Last ABG done at 11:38 revealed a pH of 7.34, pCO2 46.0, pO2 81.0, and oxygen saturation is 95.9%. MRSA screening and blood culture are pending. First chest x-ray revealed no cardiomegaly but tortuous aorta. There was some blunting of the costophrenic angles more on the right than the left. Repeat chest x-ray done four hours later, earlier today, did not reveal any significant changes, there was better visualization of the costophrenic angle, and no pleural effusion. CT of the chest with contrast revealed bibasilar emphysematous changes. No pleural effusion. No pericardial effusion. No pneumothorax. No aneurysm. EKG done today at revealed normal sinus rhythm at 84 beats per minute, right axis deviation, right atrial abnormality, incomplete right bundle branch block. No prior at this time for comparison. Echocardiogram done earlier today revealed a normal global left ventricular systolic function and there were findings consistent with moderately severe pulmonary hypertension with a dilated right atrium. Moderate tricuspid regurgitation. IMPRESSION: 1. Elevated serum per BMP, probably related to some degree of right-sided failure versus minimal left ventricular diastolic dysfunction. The patient is on Lasix, and I will continue the same, but he will need to be monitored for his hyponatremia. There is no significant and therefore, it will be decreased. Serum troponin so far has been flat and he will be monitored. He is on nitroglycerin and I will continue the same for now. It seems that his blood pressure is stable. He most likely will not need it. 2. Abnormal serum troponin, probably related to demand ischemia versus some right-sided failure. No further workup is needed at the present time. One he is no longer nothing by mouth, we should restart the aspirin. 3. Chronic obstructive pulmonary disease (COPD) with exacerbation and this is being addressed. He is being evaluated and monitored by strap folding machine operator. 4. History of smoking. This is also being addressed. 5. Hyponatremia, severe. He is being evaluated. He is also being monitored. He does not seem to be symptomatic from that and this is probably chronic. 6. Hyperkalemia, mild, and he is being monitored. It was a pleasure to participate in the care of Mr. Norberto Perdomo for his underlying cardiac condition. I will continue to monitor him along with you while in the hospital. His cardiac status seems to be stable.
--- NOTE | 2016-10-21 09:48 | ECGEPIP ---
Stationary ECG Study [facility] - ED Test Date: 2016-10-20 Pat Name: CARLOTTA FERNANDES Department: Room: [place] [address] Gender: M [employer] Fusion Developer: josh : [id number] Requested By: JAE KELLY Order Number: [id number] Reading MD: Arianna Kumari Measurements Intervals [place] Rate: 86 P: 70 AK: 159 QRS: 81 QRSD: 105 T: 87 QT: 370 QTc: 445 Interpretive Statements SINUS RHYTHM BASELINE ARTIFACT LIMITS INTERPRETATION RIGHT ATRIAL ENLARGEMENT INCOMPLETE RIGHT BUNDLE BRANCH BLOCK NO PRIOR FOR COMPARISON Electronically Signed On 10-21-2016 9:47:53 EST by Arianna Kumari
[2016-10-21 11:18] LABS: CORTISOL AM 60.9 UG/DL (4.3-22.4)
--- NOTE | 2016-10-21 12:01 | IPN ---
DATE: 10/21/2016 ADDENDUM Called by intensive care unit (ICU) physician, Dr. Sotomayor, that patient was found on the street. Dr. Sotomayor has been seeking confirmation that patient had done his medical order for life-sustaining treatment (MOLST) form yesterday for DO NOT RESUSCITATE/DO NOT INTUBATE prior to walking out against medical advice. I have personally signed the MOLST form with the patient with two witnesses. First witness is nursing staff, Lizbeth Crenshaw. Second nursing staff Neris Desouza as second witness. Patient wanted DO NOT RESUSCITATE/DO NOT INTUBATE prior to signing out against medical advice, patient was informed that the risks of leaving include respiratory failure, , and coma. As per discharge summary, patient still put on his clothes and walked out against medical advice. As per Dr. Sotomayor, unfortunately, the MOLST form is not scanned into the computer system, but I, Dr. Perri Ji, as well as the two nursing staff who witnessed the form can confirm that patient did sign the MOLST form.
--- NOTE | 2016-10-21 20:54 | CCN ---
DATE: 10/20/2016 NOTE: I was asked by Dr. Ji to emergently evaluate Mr. Perdomo for acute on chronic hypercapnic respiratory failure. Mr. Perdomo is a 56-year-old white male who has not seen any medical provider for at least 8 years, who presented to the emergency department earlier today with increasing dyspnea on exertion. His shortness of breath had increased significantly over the previous 24 hours which is why he proceeded to the emergency department. He also had a cough productive of yellowish sputum, but it is less clear whether that is a chronic cough. At his baseline he admits to some level of dyspnea. He has been sleeping in the sitting position for quite some time. He denies chest pain or pressure. No nausea or abdominal pain. No fevers, chills, or night sweats. Upon arrival to the emergency department, he was found to have acute chronic respiratory failure with an arterial blood gas that showed a pH of 7.21 and a pCO2 of 77. He was started on noninvasive mechanical ventilation with some improvement in his respiratory acidemia. Mr. Perdomo does not have any known diagnosed previous medical history. He is a smoker and it is difficult to get a history, but tells us it has been 1-2 packs per day for many years. He does not admit to any alcohol or other drug usage. PAST MEDICAL HISTORY: 1. Tobacco usage, ongoing. ALLERGIES: No known drug allergies. MEDICATIONS: None. PHYSICAL EXAMINATION: GENERAL: Mr. Perdomo is sitting upright in the bed with full face mask and IMV in place appearing quite anxious. VITAL SIGNS: Temperature 96.4, pulse 82, respiratory rate 26, blood pressure 139/94, with a mean arterial pressure (MAP) of 109, SpO2 98% on noninvasive mechanical ventilation (NIMV) of 12 with an inspiratory-positive airway pressure (I-PAP) of 12 and an expiratory-positive airway pressure (E-PAP) of 6 at a rate of 8. HEENT: Anicteric. Pupils equal, round, and reactive to light. Nares and oropharynx not examined secondary to full face mask. NECK: Supple, markedly enlarged external jugular veins. I could not appreciate the internal jugular veins as he would not easily lay back. Without thyromegaly or masses, trachea is midline. LYMPHATICS: Without cervical or supraclavicular lymphadenopathy. CHEST: Increased anteroposterior (AP) diameter. LUNGS: Symmetric excursion, generalized diminished air entry. No wheeze, rhonchi, or crackle on tidal excursion. Prolonged expiratory phase. No accessory muscle usage or retractions. CARDIOVASCULAR: Regular rate and rhythm, distant, normal S1, S2, no murmur, rub, or gallop appreciated. ABDOMEN: Positive bowel sounds, soft, nondistended, nontender, no hepatosplenomegaly or masses appreciated. EXTREMITIES: Trace edema. Warm and well-perfused, without clubbing or cyanosis. Palpable pedal pulses bilaterally. LABORATORY DATA: Electrolytes this morning showed a sodium of 111, potassium of 5.2, chloride 72, bicarbonate 29, anion gap 10, BUN 8, creatinine 0.5, glucose 133, osmolality 234, calcium 8.4, lactic acid 1.2 (improved from 3.6 earlier today), BNP 772, phosphorous 2.7, magnesium 2.0, total bilirubin 0.6, direct bilirubin 0.2, AST 40, ALT 25, alkaline phosphatase 84, CK 781, CK-MB 36, troponin I is 0.13, CRP 4.04, total protein 7.7, albumin 3.2, TSH 0.6. The next CK was 1209 with a CK-MB of 56 and troponin I of 0.14. CBC showed a hemoglobin of 14.4, hematocrit 42.5, platelet count 424,000, white blood cell count 19,100, with a differential of 82% neutrophils, 9% lymphocytes, 7% monocytes. D-dimer less than 270. Urinalysis showed pH of 7.0, 2+ protein, 1+ glucose, trace ketones, 2+ blood. Bacteria negative. Toxicology was negative. Alcohol level less than 0.003. His original blood gas was 7.21/77/406 with a measured saturation of 100% and a base excess of -0.6. I do not know how much oxygen this was drawn on. His most recent arterial blood gas was 7.34/46/81 with a measured saturation of 96% and a base excess of -1.7. This was on noninvasive mechanical ventilation of 12/6 and an FiO2 of 0.3. I reviewed his chest xray as well as report from earlier today. That xray showed normal appearing cardiac silhouette and pulmonary vasculature with possibly mildly enlarged pulmonary vascular shadows. Normal appearing mediastinal and hilar region. No consolidated regions. There is evidence of hyperinflation. I reviewed his chest CT as well report. That CT scan showed normal appearing cardiac silhouette and pulmonary vascular shadows. No mediastinal or hilar lymphadenopathy. No acute infiltrates. Mild bilateral emphysematous changes. IMPRESSION: 1. Acute hypercapnic respiratory failure leading to noninvasive mechanical ventilation. I suspect that he has some level of underlying obstructive lung process and it is possible this is an exacerbation. Differential would have to include cardiac causes, pulmonary hypertension, or other. Based on my examination and findings I am not highly suspicious of pulmonary edema. 2. Probable chronic obstructive pulmonary disease (COPD) based on examination and chest xray and CT findings. 3. Hyponatremia, being evaluated by nephrology. 4. Chronic shortness of breath. Further history is unknown but differential would include secondary obstructive lung process, cardiac causes, pulmonary hypertension, or other. 5. Tobacco usage, ongoing at the time of admission. RECOMMENDATIONS: 1. Would continue with current noninvasive mechanical ventilation settings. I have been asked whether I thought he needed intubation and I do not feel he needs this at this time. 2. Would continue bronchodilators and systemic corticosteroids. 3. He appears very anxious and would add a nicotine patch to his regimen. 4. Agree with plan to rule out for a myocardial infarction. 5. Await echocardiogram results. 6. Agree with starting a long-acting muscarinic antagonist. I feel it is also reasonable to start the long-acting bronchodilator/inhaled corticosteroid combination medication. 7. I am not highly suspicious for bronchitis based on the limited history I was able to obtain. Would send his sputum for gram stain and culture before expanding antibiotics. Critical care time: 35 minutes, not including procedure time.
--- NOTE | 2016-10-22 08:45 | EDDOCDS ---
Nurse's Notes [facility] Name: Norberto Perdomo Age: 56 yrs Sex: Male : 1960 Arrival Date: 10/20/2016 Time: 03:50 Bed 2 Private MD: Diagnosis: Respiratory failure, unspecified with hypercapnia Presentation: 10/20 03:56 Presenting complaint: Patient states: SOB x 3 hours. Suicide/Homicide risk assessment- nn1 the patient denies having any suicidal and/or homicidal ideations and does not present with any other emotional, behavioral or mental health complaints. Status: Patient is not a flight service specialist or dependent. Transition of care: patient was not received from another setting of care. 03:56 Acuity: OPAL Level 3 nn1 03:56 Method Of Arrival: Walkin/Carried/Asstd nn1 05:11 Adult Sepsis Screening: The patient does not have new or worsening altered mentation. kas2 Patient's respiratory rate is less than 22. Systolic blood pressure is greater than 100. Patient has a qSOFA score of 0- Negative Sepsis Screen. Triage Assessment: 03:59 General: Appears distressed, Behavior is cooperative. Pain: Denies pain. The patient is nn1 triaged at the bedside. See Assessment in Nurses Notes section of ED record. Neurological: Level of Consciousness is awake, alert. Cardiovascular: Capillary refill < 3 seconds. Respiratory: Onset: The symptoms/episode began/occurred 2 HOURS AGO, Airway is patent Respiratory effort is labored, gasping, with retractions. Derm: Skin is diaphoretic. 05:10 Pt Declines HIV testing. kas2 Historical: - Allergies: No known drug Allergies; - Home Meds: 1. none - PMHx: none; - PSHx: none; - Social history: Smoking status: Patient uses tobacco products, heavy tobacco smoker. No barriers to communication noted, The patient speaks fluent American, Speaks appropriately for age. - Family history: Not pertinent. - : The pt / caregiver states he / she is not on anticoagulants. Home medication list is obtained from the patient. - Exposure Risk Screening:: None identified. Screenin:10 Screening information is obtained from the patient. Fall risk: No risks identified. kas2 Assistance ADL's: requires no assistance with activities of daily living. Abuse/DV Screen: The patient / caregiver reports he/she is: not in a situation that causes fear, pain or injury. Nutritional screening: No deficits noted. Advance Directives: Currently, there is no health care proxy. There is no active DNR order. There is no living will. There is no Power of Agricultural Engineering Teacher. home support is adequate. Assessment: 03:50 General: RT in the room applying BIPAP to patient at this time.. kas2 04:06 General: Appears distressed, unkempt, Behavior is appropriate for age, cooperative. kas2 Pain: Denies pain. Neurological: Level of Consciousness is awake, alert, Oriented to person, place, time. Cardiovascular: Capillary refill < 3 seconds Heart tones present Rhythm is sinus tachycardia No ectopy. Respiratory: Airway is compromised Respiratory effort is labored, with nasal flaring, Respiratory pattern is tachypnea Breath sounds are diminished Breath sounds with wheezes inspiratory expiratory bilaterally. Derm: Skin is intact, Skin is diaphoretic, Skin is pale, Skin temperature is warm. 05:05 General: Patient sitting up in bed with BIPAP on. Patient is much more comfortable and kas2 SpO2 100%. No apparent distress noted. Appears comfortable. VSS. Call mtz within reach. Will continue to monitor.. 06:32 General: Appears in no apparent distress, comfortable, well nourished, well groomed, kas2 Behavior is appropriate for age, cooperative. Pain: Denies pain. Neurological: Level of Consciousness is awake, alert, Oriented to person, place, time. Cardiovascular: Capillary refill < 3 seconds Heart tones present Rhythm is sinus rhythm No ectopy. Respiratory: Airway is patent Respiratory effort is even, unlabored, Respiratory pattern is regular, symmetrical, Breath sounds are diminished bilaterally. Derm: Skin is intact, Skin is dry, Skin is pink, warm & dry. Skin temperature is warm. 07:35 General: Appears in no apparent distress, comfortable, Behavior is cooperative. Pain: bcj Denies pain. Neurological: Level of Consciousness is awake, alert, Oriented to person, place, time. Cardiovascular: Rhythm is sinus rhythm. Respiratory: Airway is patent Respiratory effort is even, unlabored, Respiratory pattern is regular, Breath sounds with rhonchi bilaterally. Breath sounds are diminished bilaterally. Derm: Skin is pink, warm & dry. Vital Signs: 03:55 BP 112 / 73 (auto/); kas2 03:56 Pulse 91 MON; Pulse Ox 97% ; kas2 03:57 BP 112 / 73; Pulse 89; Resp 36; Pulse Ox 74% on R/A; Pain 0/10; nn1 04:00 Pulse Ox 99% on 15% Non-rebreather mask; nn1 04:00 BP 117 / 90 (auto/); kas2 04:00 Pulse 90 MON; Pulse Ox 98% ; kas2 04:30 BP 166 / 98 (auto/); kas2 04:30 Pulse 82 MON; Pulse Ox 100% ; kas2 04:45 BP 149 / 81 (auto/); kas2 04:45 Pulse 82 MON; Pulse Ox 99% ; kas2 05:00 BP 133 / 78 (auto/); kas2 05:00 Pulse 81 MON; Pulse Ox 98% ; kas2 05:15 BP 124 / 70 (auto/); kas2 05:15 Pulse 77 MON; Pulse Ox 97% ; kas2 05:30 BP 124 / 75 (auto/); kas2 05:30 Pulse 76 MON; Pulse Ox 95% ; kas2 05:45 BP 130 / 76 (auto/); kas2 05:45 Pulse 77 MON; Pulse Ox 97% ; kas2 06:00 BP 126 / 72 (auto/); kas2 06:00 Pulse 77 MON; Pulse Ox 96% ; kas2 06:15 BP 133 / 86 (auto/); kas2 06:15 Pulse 78 MON; Pulse Ox 98% ; kas2 06:30 BP 138 / 69 (auto/); kas2 06:30 Pulse 76 MON; Pulse Ox 98% ; kas2 06:33 Resp 20; Temp 98.0(O); Pain 0/10; kas2 07:35 BP 127 / 86; Pulse 76; Resp 20; Temp 97.6; Pulse Ox 96% on 40% BiPAP; Pain 0/10; [facility] Vitals: 07:38 Log In Time N/A - ambulance arrival. [facility] ED Course: 03:55 Patient visited by Niharika Merritt. gjb 03:55 Jessica Jones,RN is Primary Nurse. nn1 03:55 Patient moved to Waiting gjb 03:55 Patient moved to 2 nn1 03:56 Ag Godinez DO is Attending Physician. cs11 03:56 Patient visited by Ag Godinez DO. cs11 03:57 Triage Initiated nn1 04:05 Inserted saline lock: 18 gauge in right antecubital area and blood collected. The kas2 patient tolerated the procedure well. 04:06 Inserted saline lock: 20 gauge in right forearm The patient tolerated the procedure kas2 well. 04:09 Patient visited by Jessica Jones RN. kas2 04:12 CBC with Diff Sent. kas2 04:12 Cardiac Marker Panel Sent. kas2 04:12 Lactic Acid (Sandra tube on ice) Sent. kas2 04:12 BNP Sent. kas2 04:18 Patient visited by Rose Field Unit Clerk. jlm 04:18 EKG done. (by ED staff). Reviewed by Ag Godinez DO. jlm 04:19 -Arterial Blood Gas Sent. jc3 04:26 Patient visited by Jessica Jones RN. kas2 04:30 Notified attending ED physician of Critical lab value. sls1 05:01 [facility] Payment Agreement was scanned into [employer] and attached to record. hs2 05:06 Danie Dumas MD is Hospitalizing Provider. cs11 05:10 No procedures done that require assistance. kas2 05:11 Patient visited by Jessica Jones RN. kas2 06:31 ARTERIAL BLOOD GAS Sent. jc3 06:33 Patient visited by Jessica Jones RN. kas2 07:29 Patient visited by Kolby Desouza RN. bcj 07:35 Primary Nurse role handed off by Jessica Jones RN deg 07:35 No apparent distress. Resting quietly. Awaiting bed assignment. bcj 07:35 The patient / caregiver is instructed regarding the plan of care and ED course. Cardiac bcj monitor on. Pulse ox on. NIBP on. 07:35 IV is intact. bcj 07:55 Patient visited by Kolby Desouza RN. bcj 09:04 T-Sheet-- Draft Copy was scanned into [employer] and attached to record. [facility] 10/21 10:47 ECG/EKG was scanned into [employer] and attached to record. gb Administered Medications: 10/20 04:20 Drug: Albuterol-Ipratropium 3 ml [ipratropium-albuterol 0.5 mg-3 mg(2.5 mg base)/3 mL jc3 nebulization soln (3 mL)] Route: Inhalation; 04:25 Drug: Dexamethasone 10 mg [dexamethasone 4 mg/mL injection solution] Route: IV; Rate: kas2 bolus; Site: right hand; 05:32 Drug: Aspirin 324 mg [aspirin 81 mg chewable tablet (4 tabs)] Route: PO; kas2 RT: 04:19 ABG's drawn from right brachial artery pressure held for 5 minutes no bleeding noted jc3 pressure bandage applied specimen sent pt. tolerated well. 04:19 BIPAP: Inspiratory Pressure: 14, Expiratory Pressure: 6, Backup Rate: 8, FiO2: 50%, jc3 Full face fask. Initial Med Neb Given as ordered. Respiratory: Breath sounds are diminished bilaterally. 04:36 BIPAP: FiO2: 40%. jc3 05:05 ABG's drawn from right radial artery pressure held for 5 minutes no bleeding noted jc3 pressure bandage applied specimen sent pt. tolerated well. 05:15 Respiratory: Airway is patent Respiratory effort is labored, Use of accessory muscles jc3 noted. Respiratory pattern is Breath sounds are diminished bilaterally. 06:31 ABG's drawn from right brachial artery pressure held for 5 minutes no bleeding noted jc3 pressure bandage applied specimen sent pt. tolerated well. Order Results: Lab Order: CBC with Diff; SPEC'M 10/20/16 03:59 Test: WHITE BLOOD COUNT; Value: 19.1; Range: 4.0-10.0; Abnormal: Above high normal; Units: K/mm3; Status: F Test: RED BLOOD COUNT; Value: 4.74; Range: 4.30-6.10; Units: M/mm3; Status: F Test: HEMOGLOBIN; Value: 14.4; Range: 14.0-18.0; Units: g/dl; Status: F Test: HEMATOCRIT; Value: 42.5; Range: 42.0-52.0; Units: %; Status: F Test: MEAN CORPUSCULAR VOLUME; Value: 89.5; Range: 80.0-96.0; Units: fl; Status: F Test: MEAN CORPUSCULAR HEMOGLOBIN; Value: 30.3; Range: 27.0-33.0; Units: pg; Status: F Test: MEAN CORPUSCULAR HGB CONC; Value: 33.9; Range: 32.0-36.5; Units: g/dl; Status: F Test: RED CELL DISTRIBUTION WIDTH; Value: 12.0; Range: 11.5-14.5; Units: %; Status: F Test: PLATELET COUNT, AUTOMATED; Value: 424; Range: 150-450; Units: k/mm3; Status: F Test: NEUTROPHILS %; Value: 82.4; Range: 36.0-66.0; Abnormal: Above high normal; Units: %; Status: F Test: LYMPH %; Value: 8.7; Range: 24.0-44.0; Abnormal: Below low normal; Units: %; Status: F Test: MONO %; Value: 7.1; Range: 0.0-5.0; Abnormal: Above high normal; Units: %; Status: F Test: EOS %; Value: 0.3; Range: 0.0-3.0; Units: %; Status: F Test: BASO %; Value: 0.1; Range: 0.0-1.0; Units: %; Status: F Test: LARGE UNSTAINED CELL %; Value: 1.4; Range: 0.0-4.0; Units: %; Status: F Test: NEUTROPHILS #; Value: 15.7; Range: 1.8-7.7; Abnormal: Above high normal; Units: K/mm3; Status: F Test: LYMPH #; Value: 1.7; Range: 1.5-4.5; Units: K/mm3; Status: F Test: MONO #; Value: 1.4; Range: 0.0-0.8; Abnormal: Above high normal; Units: K/mm3; Status: F Test: EOS #; Value: 0.0; Range: 0.0-0.50; Units: K/mm3; Status: F Test: BASO #; Value: 0.0; Range: 0.0-0.2; Units: K/mm3; Status: F Test: LARGE UNSTAINED CELL #; Value: 0.3; Range: 0.0-0.4; Units: K/mm3; Status: F Lab Order: Lactic Acid (Sandra tube on ice); SPEC'M 10/20/16 03:59 Test: LACTIC ACID LEVEL, LACTATE; Value: 3.6; Range: 0.4-2.0; Abnormal: Above upper panic limits; Units: MMOL/L; Status: F Lab Order: Cardiac Marker Panel; SPEC'M 10/20/16 03:59 Test: CPK CREATINE PHOSPHOKINASE; Value: 781; Range: 39-308; Abnormal: Above high normal; Units: U/L; Status: F Test: CK-MB VALUE MASS; Value: 36.3; Range: 0.0-3.6; Abnormal: Above high normal; Units: NG/ML; Status: F Test: MB/CK RELATIVE INDEX; Value: 4.64; Range: < OR =4; Abnormal: Above high normal; Status: F Test: TROPONIN I; Value: 0.13; Range: < 0.10; Abnormal: Above high normal; Units: NG/ML; Status: F Test Note: ; DIAGNOSIS CRITERIA MMB ng/ml Relative Index (RI) NON-AMI < or = 5 N/A SANDRA ZONE > 5 < or = 4 AMI > 5 > 4 Lab Order: BNP; [facility]' 10/20/16 03:59 Test: BRAIN NATRIURETIC PEPTIDE; Value: 772; Range: <100; Abnormal: Above high normal; Units: PG/ML; Status: F Lab Order: -Arterial Blood Gas; [facility]' 10/20/16 04:10 Test: ABG pH (ARTERIAL); Value: 7.205; Range: 7.350-7.450; Abnormal: Critical Low; Units: UNITS; Status: F Test: ABG PARTIAL PRESSURE CO2; Value: 77.0; Range: 35.0-45.0; Abnormal: Above upper panic limits; Units: mmHg; Status: F Test: ABG PARTIAL PRESSURE O2; Value: 405.9; Range: 75.0-100.0; Abnormal: Above high normal; Units: mmHg; Status: F Test: ABG TOTAL CO2; Value: 32.1; Range: 22.0-29.0; Abnormal: Above high normal; Units: MEQ/L; Status: F Test: ABG HCO3; Value: 29.8; Range: 22.0-26.0; Abnormal: Above high normal; Units: MEQ/L; Status: F Test: ABG BASE EXCESS; Value: -0.6; Range: -2.0-2.0; Status: F Test: ABG STANDARD HCO3; Value: 24.1; Range: 22.0-26.0; Units: MEQ/L; Status: F Test: ABG O2 SATURATION; Value: 99.8; Range: 95.0-99.0; Abnormal: Above high normal; Units: %; Status: F Test: ABG DEVICE; Value: NASAL HEMALATHA; Status: F Lab Order: -Arterial Blood Gas; [facility]10/20/16 05:02 Test: ABG pH (ARTERIAL); Value: 7.318; Range: 7.350-7.450; Abnormal: Below low normal; Units: UNITS; Status: F Test: ABG PARTIAL PRESSURE CO2; Value: 56.4; Range: 35.0-45.0; Abnormal: Above high normal; Units: mmHg; Status: F Test: ABG PARTIAL PRESSURE O2; Value: 124.5; Range: 75.0-100.0; Abnormal: Above high normal; Units: mmHg; Status: F Test: ABG TOTAL CO2; Value: 30.0; Range: 22.0-29.0; Abnormal: Above high normal; Units: MEQ/L; Status: F Test: ABG HCO3; Value: 28.3; Range: 22.0-26.0; Abnormal: Above high normal; Units: MEQ/L; Status: F Test: ABG BASE EXCESS; Value: 0.9; Range: -2.0-2.0; Status: F Test: ABG STANDARD HCO3; Value: 25.3; Range: 22.0-26.0; Units: MEQ/L; Status: F Test: ABG O2 SATURATION; Value: 98.5; Range: 95.0-99.0; Units: %; Status: F Test: ABG DEVICE; Value: NASAL HEMALATHA; Status: F Lab Order: COMPLETE COMPHRENSIVE METABOLI; SPEC10/20/16 06:31 Test: GLUCOSE, FASTING; Value: 124; Range: 70-105; Abnormal: Above high normal; Units: MG/DL; Status: F Test: BLOOD UREA NITROGEN; Value: 7; Range: 7-18; Units: MG/DL; Status: F Test: CREATININE FOR GFR; Value: 0.56; Range: 0.70-1.30; Abnormal: Below low normal; Units: MG/DL; Status: F Test: GLOMERULAR FILTRATION RATE; Value: > 60.0; Range: >56; Status: F Test: SODIUM LEVEL; Value: 111; Range: 136-145; Abnormal: Critical Low; Units: MEQ/L; Status: F Test: POTASSIUM SERUM; Value: 5.1; Range: 3.5-5.1; Units: MEQ/L; Status: F Test: CHLORIDE LEVEL; Value: 72; Range: 98-107; Abnormal: Below low normal; Units: MEQ/L; Status: F Test: CARBON DIOXIDE LEVEL; Value: 31; Range: 21-32; Units: MEQ/L; Status: F Test: ANION GAP; Value: 8; Range: 8-16; Units: MEQ/L; Status: F Test: CALCIUM LEVEL; Value: 8.4; Range: 8.5-10.1; Abnormal: Below low normal; Units: MG/DL; Status: F Test: AST/SGOT; Value: 43; Range: 15-37; Abnormal: Above high normal; Units: U/L; Status: F Test: ALT/SGPT; Value: 22; Range: 12-78; Units: U/L; Status: F Test: ALKALINE PHOSPHATASE; Value: 79; Range: 45-117; Units: U/L; Status: F Test: BILIRUBIN,TOTAL; Value: 0.5; Range: 0.2-1.0; Units: MG/DL; Status: F Test: TOTAL PROTEIN; Value: 7.1; Range: 6.4-8.2; Units: GM/DL; Status: F Test: ALBUMIN; Value: 2.9; Range: 3.2-5.2; Abnormal: Below low normal; Units: GM/DL; Status: F Test: ALBUMIN/GLOBULIN RATIO; Value: 0.69; Range: 1.00-1.93; Abnormal: Below low normal; Status: F Test Note: ; Units are mL/min/1.73 m2 Chronic Kidney Disease Staging per NKF: Stage I & II GFR >=60 Normal to Mildly Decreased Stage III GFR 30-59 Moderately Decreased Stage IV GFR 15-29 Severely Decreased Stage V GFR <15 Very Little GFR Left ESRD GFR <15 on RESEARCH GEOLOGIST Lab Order: D-DIMER QUANT; SPEC'M 10/20/16 06:31 Test: D-DIMER QUANT; Value: < 270.0; Range: <500; Units: ng/ml; Status: F Lab Order: ARTERIAL BLOOD GAS; SPEC'M 10/20/16 06:30 Test: ABG pH (ARTERIAL); Value: 7.339; Range: 7.350-7.450; Abnormal: Below low normal; Units: UNITS; Status: F Test: ABG PARTIAL PRESSURE CO2; Value: 53.9; Range: 35.0-45.0; Abnormal: Above high normal; Units: mmHg; Status: F Test: ABG PARTIAL PRESSURE O2; Value: 113.2; Range: 75.0-100.0; Abnormal: Above high normal; Units: mmHg; Status: F Test: ABG TOTAL CO2; Value: 30.0; Range: 22.0-29.0; Abnormal: Above high normal; Units: MEQ/L; Status: F Test: ABG HCO3; Value: 28.4; Range: 22.0-26.0; Abnormal: Above high normal; Units: MEQ/L; Status: F Test: ABG BASE EXCESS; Value: 1.5; Range: -2.0-2.0; Status: F Test: ABG STANDARD HCO3; Value: 25.8; Range: 22.0-26.0; Units: MEQ/L; Status: F Test: ABG O2 SATURATION; Value: 98.4; Range: 95.0-99.0; Units: %; Status: F Lab Order: THYROID PROFILE; [facility]10/20/16 03:59 Test: T UPTAKE; Range: 33-40; Units: %; Status: I Test: THYROXINE (T4); Range: 4.5-12.0; Units: UG/DL; Status: I Test: FREE THYROXINE INDEX; Range: 1.4-3.8; Units: %; Status: I Test: THYROID STIMULATING HORMONE; Range: 0.358-3.740; Units: uIU/ML; Status: I Lab Order: C REACTIVE PROTEIN QUANTITATIV; SPEC10/20/16 03:59 Test: C REACTIVE PROTEIN QUANTITATIV; Value: 4.04; Range: 0.00-0.30; Abnormal: Above high normal; Units: MG/DL; Status: F Outcome: 05:07 Decision to Hospitalize by Provider. cs11 07:35 Discharge Assessment: patient administered narcotics - no. The following High Risk j Discharge criteria are identified: None. Admitted to ICU accompanied by nurse, accompanied by tech, via stretcher, with oxygen. Condition: stable. No special radiology studies were completed. Admission hand-off: Report called to Sharyn Crenshaw RN. Property :Personal belongings accompany Pt. 07:45 Patient left the ED. dy Signatures: Jane Harrell, Marine Rigger Unit deg Kolby Desouza, RN RN Shamika Chin, Reg Reg gb Rambo Lopez, RN RN Cj Valenzuela 3 Neris Johns RN RN sls1 Ag Godinez, DO cs11 Rose Field, Marine Rigger Unit jlm Navid BarkerRN RN nn1 Niharika Merritt Hillary, Reg Reg hs2 Jessica JonesRN RN [facility] Arianna Robledo Chart Complete MTDD
--- NOTE | 2016-10-22 08:45 | EDDOCDS ---
Physician Documentation [facility] Name: Norberto Perdomo Age: 56 yrs Sex: Male : 1960 Arrival Date: 10/20/2016 Time: 03:50 Bed 2 Private MD: Disposition: 10/20 05:36 Critical Care:. cs11 Disposition: 10/20/16 05:07 Hospitalization ordered by Danie Dumas for Inpatient Admission. Preliminary diagnosis is Respiratory failure, unspecified with hypercapnia. - Bed requested for M ICU. - Status is Inpatient Admission. dy - Condition is Stable. - Problem is new. - Symptoms have improved. Historical: - Allergies: No known drug Allergies; - Home Meds: 1. none - PMHx: none; - PSHx: none; - Social history: Smoking status: Patient uses tobacco products, heavy tobacco smoker. No barriers to communication noted, The patient speaks fluent Bengali, Speaks appropriately for age. - Family history: Not pertinent. - : The pt / caregiver states he / she is not on anticoagulants. Home medication list is obtained from the patient. - Exposure Risk Screening:: None identified. Vital Signs: 03:55 BP 112 / 73 (auto/); kas2 03:56 Pulse 91 MON; Pulse Ox 97% ; kas2 03:57 BP 112 / 73; Pulse 89; Resp 36; Pulse Ox 74% on R/A; Pain 0/10; nn1 04:00 Pulse Ox 99% on 15% Non-rebreather mask; nn1 04:00 BP 117 / 90 (auto/); kas2 04:00 Pulse 90 MON; Pulse Ox 98% ; kas2 04:30 BP 166 / 98 (auto/); kas2 04:30 Pulse 82 MON; Pulse Ox 100% ; kas2 04:45 BP 149 / 81 (auto/); kas2 04:45 Pulse 82 MON; Pulse Ox 99% ; kas2 05:00 BP 133 / 78 (auto/); kas2 05:00 Pulse 81 MON; Pulse Ox 98% ; kas2 05:15 BP 124 / 70 (auto/); kas2 05:15 Pulse 77 MON; Pulse Ox 97% ; kas2 05:30 BP 124 / 75 (auto/); kas2 05:30 Pulse 76 MON; Pulse Ox 95% ; kas2 05:45 BP 130 / 76 (auto/); kas2 05:45 Pulse 77 MON; Pulse Ox 97% ; kas2 06:00 BP 126 / 72 (auto/); kas2 06:00 Pulse 77 MON; Pulse Ox 96% ; kas2 06:15 BP 133 / 86 (auto/); kas2 06:15 Pulse 78 MON; Pulse Ox 98% ; kas2 06:30 BP 138 / 69 (auto/); kas2 06:30 Pulse 76 MON; Pulse Ox 98% ; kas2 06:33 Resp 20; Temp 98.0(O); Pain 0/10; kas2 07:35 BP 127 / 86; Pulse 76; Resp 20; Temp 97.6; Pulse Ox 96% on 40% BiPAP; Pain 0/10; bcj MDM: 04:07 Call Respiratory ordered. cs11 04:08 BIPAP INPATIENT+RESP-VENT ordered. EDMS 04:09 Call Respiratory complete. kas2 04:10 -Blood Culture (Adults Only), peripheral from different site, or from device/port/PICC cs11 etc. if present ordered. 04:10 Call Respiratory ordered. cs11 04:10 Albuterol-Ipratropium 3 ml Inhalation once ordered. cs11 04:10 Dexamethasone 10 mg IV at bolus once ordered. cs11 04:10 Chest, 1 View Ordered. EDMS 04:10 BED REQUEST+ADM ordered. EDMS 04:11 Call Respiratory complete. kas2 04:11 -Blood Culture (Adults Only), peripheral from different site, or from device/port/PICC kas2 etc. if present complete. 04:11 ECG WITH READING ER PHYS+CARDIAG ordered. EDMS 04:11 CBC with Diff Ordered. EDMS 04:11 Lactic Acid (Sandra tube on ice) Ordered. EDMS 04:11 Cardiac Marker Panel Ordered. EDMS 04:11 BNP Ordered. EDMS 04:11 -Arterial Blood Gas Ordered. EDMS 04:11 -Blood Culture Ordered. EDMS 04:31 CBC with Diff Reviewed. cs11 04:31 -Arterial Blood Gas Reviewed. cs11 04:53 Lactic Acid (Sandra tube on ice) Reviewed. cs11 04:53 Cardiac Marker Panel Reviewed. cs11 05:01 Financial registration complete. hs2 05:01 [facility] Payment Agreement was scanned into [employer] and attached to record. hs2 05:21 BNP Reviewed. cs11 05:24 Aspirin 324 mg PO once ordered. cs11 05:25 -Arterial Blood Gas Ordered. EDMS 06:15 COMPLETE COMPHRENSIVE METABOLI Ordered. EDMS 06:15 D-DIMER QUANT Ordered. EDMS 06:16 Chest, 2 view PA, Lat Ordered. EDMS 06:18 ARTERIAL BLOOD GAS Ordered. EDMS 06:18 SPUTUM CULTURE AND GRAM STAIN Ordered. EDMS 06:19 Admission / Observation Status ordered. EDMS 06:19 NPO DIET ordered. EDMS 06:52 ECHOCARD,DOPPLER/COLOR FLOW ordered. EDMS 06:58 URINALYSIS Ordered. EDMS 07:05 CARDIAC MARKER PANEL Ordered. EDMS 07:05 CARDIAC MARKER PANEL Ordered. EDMS 07:05 LACTIC ACID LEVEL, LACTATE Ordered. EDMS 07:08 RESPIRATORY PANEL Ordered. EDMS 08:58 Cardiac Marker Panel Reviewed. sd1 08:58 -Arterial Blood Gas Reviewed. sd1 08:58 COMPLETE COMPHRENSIVE METABOLI Reviewed. sd1 08:58 ARTERIAL BLOOD GAS Reviewed. sd1 08:58 C REACTIVE PROTEIN QUANTITATIV Reviewed. sd1 08:58 D-DIMER QUANT Reviewed. sd1 09:04 T-Sheet-- Draft Copy was scanned into [employer] and attached to record. [facility] 10/21 10:47 ECG/EKG was scanned into [employer] and attached to record. gb Administered Medications: 10/20 04:20 Drug: Albuterol-Ipratropium 3 ml [ipratropium-albuterol 0.5 mg-3 mg(2.5 mg base)/3 mL jc3 nebulization soln (3 mL)] Route: Inhalation; 04:25 Drug: Dexamethasone 10 mg [dexamethasone 4 mg/mL injection solution] Route: IV; Rate: kas2 bolus; Site: right hand; 05:32 Drug: Aspirin 324 mg [aspirin 81 mg chewable tablet (4 tabs)] Route: PO; kas2 Critical Care Time: 05:36 Critical care time: Bedside Care: 120 minutes. Total time: 120 minutes cs11 Signatures: Dispatcher [employer] EDArianna Shell MD MD sd1 Mary Fitzpatrick RN RN daq Barnhardt, Gloria, Reg Reg Rambo Mckeon RN Ag Huang DO DO cs11 Navid Barker RN RN nn1 Eneida Thmoas, Reg Reg hs2 Jessica Jones RN RN kas2 Arianna Robledo Joseph jc3 The chart was reviewed and I authenticate all verbal orders and agree with the evaluation and treatment provided.Corrections: (The following items were deleted from the chart) 06:37 05:23 BASIC METABOLIC PROFILE+LAB ordered. EDMS EDMS 07:03 06:52 CARDIAC MARKER PANEL ordered. EDMS EDMS 07:03 06:52 CARDIAC MARKER PANEL ordered. EDMS EDMS 07:03 06:52 CARDIAC MARKER PANEL ordered. EDMS EDMS 07:18 07:05 C REACTIVE PROTEIN QUANTITATIV ordered. EDMS EDMS 07:18 07:08 THYROID PROFILE ordered. EDMS EDMS Attachments: 05:01 [facility] Payment Agreement hs2 09:04 T-Sheet-- Draft Copy [facility] 10/21 10:47 ECG/EKG gb Chart Complete MTDD
--- NOTE | 2016-10-22 08:45 | EDDOCDS ---
Physician Documentation [facility] Name: Norberto Perdomo Age: 56 yrs Sex: Male : 1960 Arrival Date: 10/20/2016 Time: 03:50 Bed 2 Private MD: Disposition: 10/20 05:36 Critical Care:. cs11 Disposition: 10/20/16 05:07 Hospitalization ordered by Danie Dumas for Inpatient Admission. Preliminary diagnosis is Respiratory failure, unspecified with hypercapnia. - Bed requested for M ICU. - Status is Inpatient Admission. dy - Condition is Stable. - Problem is new. - Symptoms have improved. Historical: - Allergies: No known drug Allergies; - Home Meds: 1. none - PMHx: none; - PSHx: none; - Social history: Smoking status: Patient uses tobacco products, heavy tobacco smoker. No barriers to communication noted, The patient speaks fluent Japanese, Speaks appropriately for age. - Family history: Not pertinent. - : The pt / caregiver states he / she is not on anticoagulants. Home medication list is obtained from the patient. - Exposure Risk Screening:: None identified. Vital Signs: 03:55 BP 112 / 73 (auto/); kas2 03:56 Pulse 91 MON; Pulse Ox 97% ; kas2 03:57 BP 112 / 73; Pulse 89; Resp 36; Pulse Ox 74% on R/A; Pain 0/10; nn1 04:00 Pulse Ox 99% on 15% Non-rebreather mask; nn1 04:00 BP 117 / 90 (auto/); kas2 04:00 Pulse 90 MON; Pulse Ox 98% ; kas2 04:30 BP 166 / 98 (auto/); kas2 04:30 Pulse 82 MON; Pulse Ox 100% ; kas2 04:45 BP 149 / 81 (auto/); kas2 04:45 Pulse 82 MON; Pulse Ox 99% ; kas2 05:00 BP 133 / 78 (auto/); kas2 05:00 Pulse 81 MON; Pulse Ox 98% ; kas2 05:15 BP 124 / 70 (auto/); kas2 05:15 Pulse 77 MON; Pulse Ox 97% ; kas2 05:30 BP 124 / 75 (auto/); kas2 05:30 Pulse 76 MON; Pulse Ox 95% ; kas2 05:45 BP 130 / 76 (auto/); kas2 05:45 Pulse 77 MON; Pulse Ox 97% ; kas2 06:00 BP 126 / 72 (auto/); kas2 06:00 Pulse 77 MON; Pulse Ox 96% ; kas2 06:15 BP 133 / 86 (auto/); kas2 06:15 Pulse 78 MON; Pulse Ox 98% ; kas2 06:30 BP 138 / 69 (auto/); kas2 06:30 Pulse 76 MON; Pulse Ox 98% ; kas2 06:33 Resp 20; Temp 98.0(O); Pain 0/10; kas2 07:35 BP 127 / 86; Pulse 76; Resp 20; Temp 97.6; Pulse Ox 96% on 40% BiPAP; Pain 0/10; bcj MDM: 04:07 Call Respiratory ordered. cs11 04:08 BIPAP INPATIENT+RESP-VENT ordered. EDMS 04:09 Call Respiratory complete. kas2 04:10 -Blood Culture (Adults Only), peripheral from different site, or from device/port/PICC cs11 etc. if present ordered. 04:10 Call Respiratory ordered. cs11 04:10 Albuterol-Ipratropium 3 ml Inhalation once ordered. cs11 04:10 Dexamethasone 10 mg IV at bolus once ordered. cs11 04:10 Chest, 1 View Ordered. EDMS 04:10 BED REQUEST+ADM ordered. EDMS 04:11 Call Respiratory complete. kas2 04:11 -Blood Culture (Adults Only), peripheral from different site, or from device/port/PICC kas2 etc. if present complete. 04:11 ECG WITH READING ER PHYS+CARDIAG ordered. EDMS 04:11 CBC with Diff Ordered. EDMS 04:11 Lactic Acid (Sandra tube on ice) Ordered. EDMS 04:11 Cardiac Marker Panel Ordered. EDMS 04:11 BNP Ordered. EDMS 04:11 -Arterial Blood Gas Ordered. EDMS 04:11 -Blood Culture Ordered. EDMS 04:31 CBC with Diff Reviewed. cs11 04:31 -Arterial Blood Gas Reviewed. cs11 04:53 Lactic Acid (Sandra tube on ice) Reviewed. cs11 04:53 Cardiac Marker Panel Reviewed. cs11 05:01 Financial registration complete. hs2 05:01 [facility] Payment Agreement was scanned into [email or web address] and attached to record. hs2 05:21 BNP Reviewed. cs11 05:24 Aspirin 324 mg PO once ordered. cs11 05:25 -Arterial Blood Gas Ordered. EDMS 06:15 COMPLETE COMPHRENSIVE METABOLI Ordered. EDMS 06:15 D-DIMER QUANT Ordered. EDMS 06:16 Chest, 2 view PA, Lat Ordered. EDMS 06:18 ARTERIAL BLOOD GAS Ordered. EDMS 06:18 SPUTUM CULTURE AND GRAM STAIN Ordered. EDMS 06:19 Admission / Observation Status ordered. EDMS 06:19 NPO DIET ordered. EDMS 06:52 ECHOCARD,DOPPLER/COLOR FLOW ordered. EDMS 06:58 URINALYSIS Ordered. EDMS 07:05 CARDIAC MARKER PANEL Ordered. EDMS 07:05 CARDIAC MARKER PANEL Ordered. EDMS 07:05 LACTIC ACID LEVEL, LACTATE Ordered. EDMS 07:08 RESPIRATORY PANEL Ordered. EDMS 08:58 Cardiac Marker Panel Reviewed. sd1 08:58 -Arterial Blood Gas Reviewed. sd1 08:58 COMPLETE COMPHRENSIVE METABOLI Reviewed. sd1 08:58 ARTERIAL BLOOD GAS Reviewed. sd1 08:58 C REACTIVE PROTEIN QUANTITATIV Reviewed. sd1 08:58 D-DIMER QUANT Reviewed. sd1 09:04 T-Sheet-- Draft Copy was scanned into [email or web address] and attached to record. [facility] 10/21 10:47 ECG/EKG was scanned into [email or web address] and attached to record. gb Administered Medications: 10/20 04:20 Drug: Albuterol-Ipratropium 3 ml [ipratropium-albuterol 0.5 mg-3 mg(2.5 mg base)/3 mL jc3 nebulization soln (3 mL)] Route: Inhalation; 04:25 Drug: Dexamethasone 10 mg [dexamethasone 4 mg/mL injection solution] Route: IV; Rate: kas2 bolus; Site: right hand; 05:32 Drug: Aspirin 324 mg [aspirin 81 mg chewable tablet (4 tabs)] Route: PO; kas2 Critical Care Time: 05:36 Critical care time: Bedside Care: 120 minutes. Total time: 120 minutes cs11 Signatures: Dispatcher [employer] EDArianna Shell MD MD sd1 Mary Fitzpatrick RN RN daq Barnhardt, Gloria, Reg Reg Rambo Mckeon RN Ag Huang DO DO cs11 Navid Barker RN RN nn1 Eneida Thomas, Reg Reg hs2 Jessica Jones RN RN kas2 Arianna Robledo Joseph jc3 The chart was reviewed and I authenticate all verbal orders and agree with the evaluation and treatment provided.Corrections: (The following items were deleted from the chart) 06:37 05:23 BASIC METABOLIC PROFILE+LAB ordered. EDMS EDMS 07:03 06:52 CARDIAC MARKER PANEL ordered. EDMS EDMS 07:03 06:52 CARDIAC MARKER PANEL ordered. EDMS EDMS 07:03 06:52 CARDIAC MARKER PANEL ordered. EDMS EDMS 07:18 07:05 C REACTIVE PROTEIN QUANTITATIV ordered. EDMS EDMS 07:18 07:08 THYROID PROFILE ordered. EDMS EDMS Attachments: 05:01 [facility] Payment Agreement hs2 09:04 T-Sheet-- Draft Copy [facility] 10/21 10:47 ECG/EKG gb Chart Complete MTDD
== END 2016-10-20 14:50 | disposition left against medical advice (07) | DRG 133 ==
LOC: M ED 03:50 → M ED INP 06:15 → M ICU 07:49
PROVIDERS: ADMIT Internal Medicine; ATTEND Hospitalist
DX: J96.22 Acute and chronic respiratory failure with hypercapnia (principal); J44.1 Chronic obstructive pulmonary disease with (acute) exacerbation; I24.8 Other forms of acute ischemic heart disease; I27.2 Other secondary pulmonary hypertension; I50.32 Chronic diastolic (congestive) heart failure; I11.0 Hypertensive heart disease with heart failure; E87.1 Hypo-osmolality and hyponatremia; E87.5 Hyperkalemia; I36.1 Nonrheumatic tricuspid (valve) insufficiency; F17.210 Nicotine dependence, cigarettes, uncomplicated; Z66 Do not resuscitate; N32.89 Other specified disorders of bladder; Z79.82 Long term (current) use of aspirin

== ENCOUNTER → 2016-10-22 | Outpatient (REF) ==
[~2016-10-22] MED LIST: ADV500INH INH; ASPI81TA7 PO; AZIT500T2 PO; LASI40TA PO; PROA1AER INH; TIOT18INH INH
[2016-10-23 14:17] LABS: HIVSOURCE0 NEGATIVE (NEGATIVE)
[2016-10-23 14:18] LABS: CONTROL LINE INT CTR LINE PRESENT; HIV SOURCE PT 1 NEGATIVE (NEGATIVE)
[2016-10-23 15:20] LABS: HEP C VIRUS AB INDEX SOURCE PT < 0.0 INDEX (0.0-0.8)
== END ==
LOC: M LAB 09:49